=== PATIENT | male | born 1960 | race Caucasian/White ===

== ENCOUNTER 2016-12-23 02:24 | Emergency (ER) | payer BC ==
[2016-12-23 02:59] VITALS: BP 142/86; PULSE 78; RESP 16; TEMP 97
--- NOTE | 2016-12-23 03:20 | ED ---
General Adult HPI - General Chief complaint: Abdominal Pain Stated complaint: abd pain Time Seen by Provider: 12/23/16 02:58 Source: patient, RN notes reviewed, old records reviewed Mode of arrival: ambulatory Limitations: no limitations - History of Present Illness Initial comments: This is a 56-year-old male presenting to emergency Department with a sudden onset of right upper quadrant abdominal pain. 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 Patient reports that the pain woke him up out of his sleep. He contacted his friend. He states he did have some focal tenderness in the right upper quadrant however it slowly subsided. Patient ice emergency department states that his pain is a 0 out of 10. Patient denies any recent fever or chills. He reports the pain did occur after he ate a fatty meal including pizza and cheese. Patient states that he's had an episode that happened like this before. He reports that he had a ventral hernia repair by Dr. Carito terry. States that he's had no other GI issues. Denies any diarrhea, hematochezia. He did have one episode of vomiting when the pain was severe. Patient states that he's feels relatively good at this time. - Related Data Home Medications Medication Instructions Recorded Confirmed Lisinopril-Hctz 20-25 mg 1 tab PO DAILY 03/13/16 03/23/16 [Zestoretic 20-25] Loratadine [Claritin] 10 mg PO DAILY PRN 03/13/16 03/23/16 Montelukast [Singulair] 10 mg PO DAILY 03/13/16 03/23/16 Venlafaxine HCl [Effexor] 75 mg PO DAILY 03/13/16 03/23/16 amLODIPine [Norvasc] 5 mg PO DAILY 03/13/16 03/23/16 Previous Rx's Medication Instructions Recorded HYDROcodone/APAP 5-325MG [[place] 1 - 2 tab PO Q6HR PRN #60 tab 03/23/16 5-325] Allergies Allergy/AdvReac Type Severity Reaction Status Date / Time No Known Allergies Allergy Verified 03/23/16 07:45 Review of Systems ROS Statement: Those systems with pertinent positive or pertinent negative responses have been documented in the HPI. ROS Other: All systems not noted in ROS Statement are negative. Past Medical History Past Medical History: GERD/Reflux, Hypertension History of Any Multi-Drug Resistant Organisms: None Reported Past Surgical History: Hernia Repair Additional Past Surgical History / Comment(s): RIGHT KNEE ARTHROSCOPIC, VARICOCELE SURGERY Past Anesthesia/Blood Transfusion Reactions: No Reported Reaction Past Psychological History: Depression Smoking Status: Never smoker Past Alcohol Use History: Occasional Past Drug Use History: None Reported - Past Family History Brother(s) Family Medical History: Cancer Additional Family Medical History / Comment(s): PROSTATE CANCER, SKIN CANCER Mother Family Medical History: Cancer Additional Family Medical History / Comment(s): COLON CANCER AND SKIN CANCER Father Family Medical History: Cancer Additional Family Medical History / Comment(s): SKIN CANCER General Exam - General Exam Comments Initial Comments: Is a pleasant 56-year-old male. Patient signed. Any acute distress. Limitations: no limitations General appearance: alert, in no apparent distress Head exam: Present: atraumatic, normocephalic, normal inspection Eye exam: Present: normal appearance, PERRL, EOMI. Absent: scleral icterus, conjunctival injection, periorbital swelling ENT exam: Present: normal exam, mucous membranes moist Neck exam: Present: normal inspection. Absent: tenderness, meningismus, lymphadenopathy Respiratory exam: Present: normal lung sounds bilaterally. Absent: respiratory distress, wheezes, rales, rhonchi, stridor Cardiovascular Exam: Present: regular rate, normal rhythm, normal heart sounds. Absent: systolic murmur, diastolic murmur, rubs, gallop, clicks GI/Abdominal exam: Present: soft, normal bowel sounds. Absent: distended, tenderness, guarding, rebound, rigid Extremities exam: Present: normal inspection, full ROM, normal capillary refill. Absent: tenderness, pedal edema, joint swelling, calf tenderness Back exam: Present: normal inspection Neurological exam: Present: alert, oriented X3, CN II-XII intact Psychiatric exam: Present: normal affect, normal mood Skin exam: Present: warm, dry, intact, normal color. Absent: rash Course Vital Signs 12/23/16 12/23/16 02:33 04:10 Temperature 97 F L 97 F L Pulse Rate 78 78 Respiratory 16 16 Rate Blood Pressure 142/86 142/86 O2 Sat by Pulse 98 98 Oximetry Medical Decision Making - Medical Decision Making 56-year-old male with intermittent and right upper quadrant abdominal pain. Patient has no abdominal tenderness at this time. Patient states that he has no pain at this time. He is questioning if he needs to stay for the labs and treatment. I discussed with the patient that we can check for any acute lab work. He does not want us to call an ultrasound. Patient's lab work is needed for any acute process. Discussed that we can write for an outpatient ultrasound. Patient agrees history plan will comply. Return Parameters were discussed. - Lab Data Result diagrams: 12/23/16 03:35 12/23/16 03:35 Lab Results 12/23/16 12/23/16 Range/Units 03:35 03:35 WBC 7.3 (3.8-10.6) k/uL RBC 4.20 L (4.30-5.90) m/uL Hgb 13.2 (13.0-17.5) gm/dL Hct 36.6 L (39.0-53.0) % MCV 87.2 (80.0-100.0) fL MCH 31.3 (25.0-35.0) pg MCHC 35.9 (31.0-37.0) g/dL RDW 12.6 (11.5-15.5) % Plt Count 202 (150-450) k/uL Neutrophils % 58 % Lymphocytes % 24 % Monocytes % 7 % Eosinophils % 9 % Basophils % 1 % Neutrophils # 4.2 (1.3-7.7) k/uL Lymphocytes # 1.8 (1.0-4.8) k/uL Monocytes # 0.5 (0-1.0) k/uL Eosinophils # 0.7 (0-0.7) k/uL Basophils # 0.1 (0-0.2) k/uL Sodium 141 (137-145) mmol/L Potassium 3.5 (3.5-5.1) mmol/L Chloride 106 (98-107) mmol/L Carbon Dioxide 25 (22-30) mmol/L Anion Gap 10 mmol/L BUN 24 H (9-20) mg/dL Creatinine 0.90 (0.66-1.25) mg/dL Est GFR (MDRD) Af Amer >60 (>60 ml/min/1.73 sqM) Est GFR (MDRD) Non-Af >60 (>60 ml/min/1.73 sqM) Glucose 114 H (74-99) mg/dL Calcium 8.9 (8.4-10.2) mg/dL Total Bilirubin 0.3 (0.2-1.3) mg/dL AST 25 (17-59) U/L ALT 55 (21-72) U/L Alkaline Phosphatase 84 (38-126) U/L Total Protein 6.5 (6.3-8.2) g/dL Albumin 3.9 (3.5-5.0) g/dL Amylase 34 (30-110) U/L Lipase 165 (23-300) U/L Disposition Clinical Impression: Intermittent right upper quadrant abdominal pain Disposition: HOME SELF-CARE Condition: Good Instructions: Abdominal Pain (ED), Biliary Colic (ED) Additional Instructions: Patient should ultrasound within the next 1-2 days. Start a nonfatty food diet. Return to the emergency department if any alarming signs or symptoms occur including severe pain again or fever or chills. Referrals: Priyank Hyde MD [Primary Care Provider] - 1-2 days Time of Disposition: 04:04
[2016-12-23 03:49] LABS: Basophils # (A) 0.1 k/uL (0-0.2); Basophils % (A) 1 %; CH 32.3; CHCM 37.2; Eosinophils # (A) 0.7 k/uL (0-0.7); Eosinophils % (A) 9 %; HCT 36.6 % (39.0-53.0); HDW 2.85; HGB 13.2 gm/dL (13.0-17.5); Luc % (Auto) 1; Lymphocytes # (A) 1.8 k/uL (1.0-4.8); Lymphocytes % (A) 24 %; MCH 31.3 pg (25.0-35.0); MCHC 35.9 g/dL (31.0-37.0); MCV 87.2 fL (80.0-100.0); Mean Platelet Volume 6.5; Monocytes # (A) 0.5 k/uL (0-1.0); Monocytes % (A) 7 %; Neutrophils # (A) 4.2 k/uL (1.3-7.7); Neutrophils % (A) 58 %; RDW 12.6 % (11.5-15.5); WBC 7.3 k/uL (3.8-10.6); WBC (Perox) 7.39
[2016-12-23 03:57] LABS: ALT 55 U/L (21-72); AST 25 U/L (17-59); Alkaline Phosphatase 84 U/L (38-126); Amylase 34 U/L (30-110); Anion Gap 10 mmol/L; Blood Urea Nitrogen 24 mg/dL (9-20); Calcium 8.9 mg/dL (8.4-10.2); Carbon Dioxide 25 mmol/L (22-30); Chloride 106 mmol/L (98-107); Glucose 114 mg/dL (74-99); Non-African American GFR(MDRD) >60 (>60 ml/min/1.73 sqM); Potassium 3.5 mmol/L (3.5-5.1); Sodium 141 mmol/L (137-145); Total Bilirubin 0.3 mg/dL (0.2-1.3); Total Protein 6.5 g/dL (6.3-8.2)
== END 2016-12-23 04:12 | disposition home or self-care (01) ==
LOC: EC 02:24
DX: R10.11 Right upper quadrant pain (principal); R11.10 Vomiting, unspecified; I10 Essential (primary) hypertension; F32.9 Major depressive disorder, single episode, unspecified; Z79.899 Other long term (current) drug therapy
CPT/HCPCS: 36415; 80053; 82150; 83690; 85025; 99284

== ENCOUNTER → 2016-12-31 | Outpatient (CLI) | payer BC ==
--- NOTE | 2016-12-31 15:14 | US ---
EXAMINATION TYPE: US abdomen limited DATE OF EXAM: 12/31/2016 2:44 PM COMPARISON: NONE CLINICAL HISTORY: R10.11 RUQ Abdominal Pain. Intermittent RUQ pain x several months; on meds for HTN, asthma and allergies. EXAM MEASUREMENTS: Liver Length: 15.9 cm Gallbladder Wall: 0.3 cm CBD: 0.4 cm Right Kidney: 12.1 x 6.9 x 5.0 cm Pancreas: wnl Liver: fatty Gallbladder: full of shadowing stones; thickened wall in LLD position Evidence for sonographic Looney's sign: no CBD: wnl Right Kidney: wnl Patient requested copy of results to his family physician Dr. Hyde. Much of the pancreas is obscured. The liver is normal in size without biliary dilatation. There are multiple gallstones within the gallbladder. The gallbladder wall measures 3 mm. The distal common hepatic duct measures 4 mm. The right kidney is normal. IMPRESSION: CHOLELITHIASIS.
== END | disposition home or self-care (01) ==
LOC: RADUSWWP 14:16
PROVIDERS: ATTEND Emergency Medicine
DX: K80.20 Calculus of gallbladder without cholecystitis without obstruction (principal)
CPT/HCPCS: 76705

== ENCOUNTER 2017-04-01 09:26 | Day surgery (SDC) | payer BC ==
[2017-03-28 14:46] VITALS: BMI 29.2
--- NOTE | 2017-04-01 07:57 | P.GSHP ---
History of Present Illness H&P Date: 04/01/17 CHIEF COMPLAINT: Cholecystitis HISTORY OF PRESENT ILLNESS: The patient is a 57-year-old male who presents with history of epigastric including right upper quadrant abdominal pain. He underwent diagnostic studies for the gallbladder. Separately his clinical picture was consistent with cholecystitis. Now he presents for surgical intervention. PAST MEDICAL HISTORY: Please see list PAST SURGICAL HISTORY: Please see list MEDICATIONS: Please see list ALLERGIES: Denies. SOCIAL HISTORY: No illicit drug use or recent tobacco use FAMILY HISTORY: Pertinent for gallbladder disease REVIEW OF ORGAN SYSTEMS: CONSTITUTIONAL: No reports of fevers or chills. HEENT: Denies any troubles with the vision or hearing. ENDOCRINE: No reports of hypothyroidism. No diabetes. RESPIRATORY: No recent pneumonias. CARDIOVASCULAR: Denies chest pain or palpitations GI: No blood in stools or constipation. MUSCULOSKELETAL: Has occasional joint pain including back pain. NEURO: No seizure disorders or headaches. No recent stroke. PSYCH: No depression or suicidal ideation. HEMATOLOGIC: No personal or family history of DVTs or pulmonary emboli. PHYSICAL EXAM: VITAL SIGNS: Afebrile vital signs stable GENERAL: Well-developed pleasant male in no acute distress. HEENT: No scleral icterus. Extraocular movements grossly intact. Moist buccal mucosa. NECK: Supple without lymphadenopathy. CHEST: Unlabored respirations. Equal bilateral excursions. CARDIOVASCULAR: Regular rate regular rhythm rhythm. Distal 2+ pulses. ABDOMEN: Soft, nondistended. Tender along the epigastrium and right upper quadrant. MUSCULOSKELETAL: No clubbing, cyanosis, or edema. NEURO :Moves all extremities 4+/5. PSYCH: Alert and oriented to person, place and time. ASSESSMENT: 1. Epigastric and right upper quadrant abdominal pain 2. Chronic cholecystitis PLAN: 1. Will need a laparoscopic cholecystectomy possible open. Benefits and risks were described. 2. Heparin for DVT prophylaxis 5000 units. 3. Antibiotic prophylaxis. 4. Will need CBC and comprehensive metabolic panel on day of this procedure. Past Medical History Past Medical History: GERD/Reflux, Hypertension Additional Past Medical History / Comment(s): SEASONAL ALLERGIES History of Any Multi-Drug Resistant Organisms: None Reported Past Surgical History: Hernia Repair Additional Past Surgical History / Comment(s): RIGHT KNEE ARTHROSCOPIC, VARICOCELE SURGERY Past Anesthesia/Blood Transfusion Reactions: No Reported Reaction Smoking Status: Never smoker - Past Family History Brother(s) Family Medical History: Cancer Additional Family Medical History / Comment(s): PROSTATE CANCER, SKIN CANCER Mother Family Medical History: Cancer Additional Family Medical History / Comment(s): COLON CANCER AND SKIN CANCER Father Family Medical History: Cancer Additional Family Medical History / Comment(s): SKIN CANCER Medications and Allergies Home Medications Medication Instructions Recorded Confirmed Type Lisinopril-Hctz 20-25 mg 1 tab PO DAILY 03/13/16 03/28/17 History [Zestoretic 20-25] Loratadine [Claritin] 10 mg PO DAILY PRN 03/13/16 03/28/17 History Montelukast [Singulair] 10 mg PO DAILY 03/13/16 03/28/17 History amLODIPine [Norvasc] 5 mg PO DAILY 03/13/16 03/28/17 History Albuterol Sulfate [Proair Hfa] 2 puff INHALATION Q4H PRN 03/28/17 03/28/17 History Allergies Allergy/AdvReac Type Severity Reaction Status Date / Time No Known Allergies Allergy Verified 03/28/17 14:42
[~2017-04-01 09:26] MED LIST: ACETAMINOPHEN IV (For NPO) 1,000 MG in EMPTY BAG 1 BAG IVPB ONE; DEXAMETHASONE SOD PHOSPHATE 10 MG/ML 1 ML VIAL IV ONE; HEPARIN SODIUM,PORCINE 5,000 UNIT/ML 1 ML VIAL SQ ONE; HYDROmorphone 1 MG/ML 1 ML SYRINGE IVP PRN; LACTATED RINGERS 1,000 ML IV SCH; LIDOCAINE 1% 20 ML VIAL (10MG/ML) FOR IV START INTRADERMA PRN; ONDANSETRON 4 MG/2 ML VIAL IVP ONE; SCOPOLAMINE 1.5MG/72HR PATCH TRANSDERM ONE; ceFAZolin 2 GM in SODIUM CHLORIDE 0.9% 100 ML IVPB ONE
[2017-04-01] MEDS ORDERED: LACTATED RINGERS 1,000 ML IV ONE (09:39)
[2017-04-01 10:01] LABS: Basophils # (A) 0.1 k/uL (0-0.2); Basophils % (A) 1 %; CH 32.9; Eosinophils # (A) 0.6 k/uL (0-0.7); Eosinophils % (A) 7 %; HCT 37.6 % (39.0-53.0); HDW 2.71; HGB 13.2 gm/dL (13.0-17.5); Luc # (Auto) 0.14; Luc % (Auto) 2; Lymphocytes # (A) 2.7 k/uL (1.0-4.8); Lymphocytes % (A) 33 %; MCH 31.4 pg (25.0-35.0); MCHC 35.2 g/dL (31.0-37.0); MCV 89.3 fL (80.0-100.0); Mean Platelet Volume 7.1; Monocytes # (A) 0.4 k/uL (0-1.0); Monocytes % (A) 5 %; Neutrophils # (A) 4.3 k/uL (1.3-7.7); Neutrophils % (A) 52 %; RBC 4.21 m/uL (4.30-5.90); RDW 13.2 % (11.5-15.5); WBC 8.2 k/uL (3.8-10.6); WBC (Perox) 8.03
[2017-04-01 10:10] LABS: ALT 74 U/L (21-72); AST 34 U/L (17-59); Alkaline Phosphatase 54 U/L (38-126); Anion Gap 11 mmol/L; Blood Urea Nitrogen 22 mg/dL (9-20); Calcium 9.3 mg/dL (8.4-10.2); Carbon Dioxide 27 mmol/L (22-30); Chloride 102 mmol/L (98-107); Glucose 86 mg/dL (74-99); Non-African American GFR(MDRD) >60 (>60 ml/min/1.73 sqM); Potassium 3.7 mmol/L (3.5-5.1); Sodium 140 mmol/L (137-145); Total Bilirubin 0.6 mg/dL (0.2-1.3); Total Protein 7.3 g/dL (6.3-8.2)
[2017-04-01] MEDS ORDERED: ROCURONIUM BROMIDE 10 MG/ML 10 ML VIAL IV ONE (11:35)
[2017-04-01] MEDS ORDERED: NEOSTIGMINE 1 MG/ML 10 ML VIAL ONE (11:35)
[2017-04-01] MEDS ORDERED: MIDAZOLAM 2 MG/2 ML VIAL ONE (11:35)
[2017-04-01] MEDS ORDERED: LIDOCAINE 1% INJ 10MG/ML (20 ML MDV) ONE (11:35)
[2017-04-01] MEDS ORDERED: PROPOFOL 10 MG/ML 20 ML VIAL IV ONE (11:35)
[2017-04-01] MEDS ORDERED: GLYCOPYRROLATE 0.2 MG/ML 2 ML VIAL ONE (11:35)
[2017-04-01] MEDS ORDERED: SUCCINYLCHOLINE CHLORIDE VIAL 200 MG/10 ML VIAL IV ONE (11:35)
[2017-04-01] MEDS ORDERED: ACETAMINOPHEN IV (For NPO) 1,000 MG/100 ML VIAL ONE (11:35)
[2017-04-01] MEDS ORDERED: fentaNYL (PF) 50 MCG/ML 2 ML AMP ONE (11:35)
[2017-04-01] MEDS ORDERED: BUPIVACAIN-EPI 0.5%-1:200,000 30 ML VIAL SQ ONE (12:00)
[2017-04-01] MEDS ORDERED: NALOXONE 0.4 MG/ML 1 ML VIAL IV PRN (12:35)
[2017-04-01] MEDS ORDERED: HYDROcodone/APAP 5-325MG 1 EACH TAB PO PRN (12:35)
--- NOTE | 2017-04-01 12:42 | P.PCN ---
Date of Procedure: 04/01/17 Preoperative Diagnosis: Cholecystitis Postoperative Diagnosis: Same, gallstones Procedure(s) Performed: Lap samy Implants: Anesthesia: GETA, local Surgeon: Gisela Lugo Estimated Blood Loss (ml): 5 Pathology: other (Gallbladder) Condition: stable Disposition: floor Indications for Procedure: Operative Findings: Severe adhesions epigastrium from previous mesh repair, thickened gallbladder wall consistent with chronic cholecystitis with gallstones. Description of Procedure:
[2017-04-01] MEDS ORDERED: KETOROLAC 30 MG/ML 1 ML VIAL IVP SCH (12:45)
[2017-04-01 12:58] VITALS: RESP 16; TEMP 98.6
[2017-04-01] MEDS ORDERED: HYDROmorphone 1 MG/ML 1 ML SYRINGE IVP ONE ×2 (13:20→13:39)
[2017-04-01 14:19] VITALS: BP 126/81; PULSE 70
[2017-04-01] MEDS ORDERED: HYDROcodone/APAP 5-325MG 1 EACH TAB PO ONE (14:38)
--- NOTE | 2017-04-04 11:19 | CDI ---
Dear Dr. Jenifer Brice, In order to code and bill for the procedures performed, we need a completed OP note. Please provide a detailed Description of Procedure as an addendum. Just the procedure title is not sufficient. If you do not understand what is needed from you, please contact my manager interventional, Anna Marie Levine . Thank you. Patricia FERGUSON WILL AMEND THANK YOU IGOR
--- NOTE | 2017-04-28 17:34 | P.OP ---
Date of Procedure: 04/01/17 Description of Procedure: SURGEON: EDDI STEVEN MD GLOBAL PROCESS OWNER: None. PREOPERATIVE DIAGNOSES: 1. Chronic Cholecystitis. 2. Symptomatic gallstones. 3. Gastroesophageal reflux disease. 4. Essential hypertension. 5. History of asthma. POSTOPERATIVE DIAGNOSES: 1. Chronic Cholecystitis. 2. Symptomatic gallstones. 3. Gastroesophageal reflux disease. 4. Essential hypertension. 5. History of asthma. 6. Peritoneal adhesions, right upper quadrant. OPERATION: Laparoscopic cholecystectomy ANESTHESIA: General with local anesthetic. ESTIMATED BLOOD LOSS: 5 mL. SPECIMENS REMOVED: Gallbladder. COMPLICATIONS: None. INDICATIONS: The patient is a 57-year-old male who presents with chronic cholecystitis. He additional diagnostic imaging including ultrasound confirming gallstones. Surgical intervention with a laparoscopic cholecystectomy was described at length including injury to the biliary tree, bleeding, infection, need for further surgery. Informed consent was obtained. DESCRIPTION OF THE PROCEDURE: The patient was brought to the operating room, laid in supine position. After general induction, the abdomen was prepped and draped in a standard sterile fashion. Prior to incision, a timeout protocol was confirmed with surgical team regarding patient's name, procedure to be performed including preoperative medications for which he had received heparin 5000 units subcutaneously as well as bilateral SCDs for DVT prophylaxis. A transverse 10 mm incision left upper quadrant incision was made after localizing the skin. A 0 degree 11-mm laparoscopic trocar entry was performed and entered into the peritoneal cavity. Diagnostic laparoscopy confirmed no injury to bowel, viscera or mesentery. Moderate omental adhesions involving the greater omentum to the anterior abdominal wall was identified along the epigastrium from his previous ventral hernia repair. No current recurrence of his ventral hernia was identified. Adhesions along the epigastrium was identified and addressed using Sonicision for over 20 minutes. Next, two 5 mm trocars were placed along the right costal margin followed another 5 mm port along the epigastrium placed under direct localization. The patient was placed in steep reverse Trendelenburg position with the right side up. With a moderate adhesions along the gallbladder, careful dissection using blunt graspers were used. Sonicision was used to divide her adhesions. Over 10 minutes of careful lysis of adhesions was performed without enterotomies. The gallbladder fundus was retracted to the anterior dome wall. Initial attention was brought to the infundibulum which was gently retracted in the inferior lateral approach. Using a Kittner, the cystic duct including the cystic artery was carefully skeletonized. A large clip sales development executive was selected for the rest of the case. Two clips were placed proximally, and 2 clips were placed distally along the cystic duct and then divided using Sonicision. Again care was taken to avoid any injury to the biliary tree as the common bile duct was visualized during this portion of dissection. Next, the cystic artery was clipped twice proximally, once distally and then cauterized and divided using Sonicision. Electro-Bovie cautery was used to remove the gallbladder from the hepatic fossa without decompression of the gallbladder. Hemostasis was checked and found to be adequate. The gallbladder was removed from the abdominal cavity using an Endo Catch bag and passed off for further pathological analysis. All instruments and pneumoperitoneum were removed from the abdominal cavity. The fascial defect was less than 8 mm for the 11-mm port site. The rest of incisions were reapproximated using 4-0 Monocryl in an interrupted subcuticular fashion. Local anesthetic was infiltrated to all wounds for postop analgesia. Dermabond was applied to the skin. At the end of the procedure, needle, sponge, and instrument count was verified correct by surgical scrub tech. The patient had tolerated the procedure well and was taken to postanesthesia care unit in stable condition. Intraoperative films were discussed and reviewed with the patient's family who were pleased with the level of care. FINDINGS: 1. Multiple gallstones. 2. Severe chronic cholecystitis with right upper quadrant adhesions. 3. Severe adhesions epigastrium from previous mesh repair 4. Thickened gallbladder wall consistent with chronic cholecystitis with gallstones.
== END 2017-04-01 15:02 | disposition home or self-care (01) ==
LOC: OR 09:26
PROVIDERS: ATTEND Surgery Plastic and Reconstructive Surgery
DX: K80.10 Calculus of gallbladder with chronic cholecystitis without obstruction (principal); K66.0 Peritoneal adhesions (postprocedural) (postinfection); J45.909 Unspecified asthma, uncomplicated; K21.9 Gastro-esophageal reflux disease without esophagitis; I10 Essential (primary) hypertension; Z79.899 Other long term (current) drug therapy
CPT/HCPCS: 88304; 80053; 85025; 47562; 49329; J2250; J0330; J1644; J1100; J2710; J0690; J2405; J2001; J3010; J1170; J0131; J2704

== ENCOUNTER → 2022-02-08 | Outpatient (CLI) | payer BC ==
--- NOTE | 2022-02-08 11:46 | P.SLEEP ---
History of Present Illness DATE: 02/08/2022 CONSULTATION/NEW PATIENT EVALUATION HISTORY OF PRESENT ILLNESS/SLEEP-WAKE EVALUATION: 62year old gentleman had been evaluated in the sleep center for obstructive sleep apnea hypopnea syndrome. Patient has history of obstructive sleep apnea hypopnea syndrome for about 10 years. For all this years patient continue to use his CPAP equipment during the night. His machine is old recently started develop some problems. For many years patient getting his CPAP supplies by himself without any prescriptions or insurance payments. I checked CPAP unit CPAP pressure is 7 cm of water usage is 26 out of 30 nights for more than 4 hours, Lyrica 0% the pressure is 7 cm of water. Patient feels that depression is not enough for him at the present time. Machine is old. SLEEP SCHEDULE: Usually sleep schedule on weekdays from 9 AM to 5 PM, during days off from 11 PM to 5- 8 AM. 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 FALLING ASLEEP: Sometimes patient has problems with falling asleep DURING SLEEP: Usually patient wakes up from sleep about 2 times per night with one episode of nocturia. No history of hypnogogical hallucinations, sleep paralysis, or cataplexy. DURING THE DAY/WAKE STATE: After awakenings from sleep patient feels sleepiness. Hobbs sleepiness scale is 9. Patient takes up to 3.naps day. PAST MEDICAL HISTORY: Hypertension, asthma, acid reflux. PAST SURGICAL HISTORY: Cholecystectomy, right knee arthroscopic surgery, a ventral hernia repair. MEDICATIONS: Norvasc 5 mg once a day, lisinoprilhydrochlorothiazide 1012 0.5 mg once a day, Singulair 10 mg once a day, pro-air 40 g on when necessary basis, Pepcid. SOCIAL HISTORY: Negative for smoking, alcohol consumption occasional. FAMILY HISTORY: Cancer REVIEW OF SYSTEMS: Awakenings from sleep while on treatment with CPAP. No fevers. No double vision. No recent chest pain. No shortness of breath. No abdominal pain. No bleeding episodes. No blood in urine. No seizure episodes. PHYSICAL EXAMINATION: GENERAL: A pleasant patient without any distress. VITAL SIGNS: BP 127/88 , HR 71 , RR 16 , weight 221.8 pounds, height 5 foot 11 inches, body mass index 31.1 . HEENT: PERRLA, EOMI. Evaluation of oropharynx showed tongue protrudes midline, low position of soft palate Mallampati 4. NECK: Supple. No JVD. Thyroid is not palpable. 18 inches in circumference. LUNGS: Clear to percussion and to auscultation. Good air exchange. No wheezing or rhonchi. HEART: S1, S2 regular. No murmurs, gallops or rubs. ABDOMEN: Soft and nontender. Bowel sounds are present. No organomegaly appreciated. EXTREMITIES: No clubbing or cyanosis. BOOKKEEPING MACHINE MECHANIC: Awake, alert, and oriented x3. Cranial nerves 2 to 7 intact. There is no f asciculation or atrophy noted. No focal deficits observed. ASSESSMENT: 1. Obstructive sleep apnea hypopnea syndrome for 10 years. Extremely small oropharyngeal air space Mallampati 4, white neck 18 inches in circumference. Obstructive sleep apnea hypopnea syndrome. 2. Mild obesity body mass index 31.1. 3 hypertension. 4. Asthma. 5 acid reflux. 6. Status post cholecystectomy. 7. Status post varicocele surgical treatment. 8. Status post right knee arthroscopic surgery. 9. Status post ventral hernia repair. 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 PLAN: 1. Home sleep apnea test for evaluation of patient's breathing during sleep at the present time. 2. Patient will get new Pap equipment after home sleep apnea test. 3. Preferable position during sleep on the side. 4. No driving if patient feels any sleepiness. Patient is aware of civil and criminal liability for unsafe driving. 5. Sleep hygiene with regular sleep time for at least 7.5-8 hours. 6. Watching weight. 7. I increased pressure in the patient CPAP unit from 7 to 9 cm of water. Patient will continue to use CPAP equipment every night. Sincerely, Golden Scott MD, PhD, FAASM. Diplomat of [place] Board of Sleep Medicine, Sleep Medicine Board by [place] [employer] of [employer] Specialities [place] [employer] of [employer] Medicine Direct [employer] Operator of [facility] [place] Past Medical History Past Medical History: GERD/Reflux, Hypertension Additional Past Medical History / Comment(s): SEASONAL ALLERGIES History of Any Multi-Drug Resistant Organisms: None Reported Past Surgical History: Hernia Repair Additional Past Surgical History / Comment(s): RIGHT KNEE ARTHROSCOPIC, VARICOCELE SURGERY Past Anesthesia/Blood Transfusion Reactions: No Reported Reaction Past Psychological History: No Psychological Hx Reported Past Alcohol Use History: Occasional Past Drug Use History: None Reported - Past Family History Brother(s) Family Medical History: Cancer Additional Family Medical History / Comment(s): PROSTATE CANCER, SKIN CANCER Mother Family Medical History: Cancer Additional Family Medical History / Comment(s): COLON CANCER AND SKIN CANCER Father Family Medical History: Cancer Additional Family Medical History / Comment(s): SKIN CANCER Medications and Allergies Home Medications Medication Instructions Recorded Confirmed Type Lisinopril-Hctz 20-25 mg 1 tab PO DAILY 03/13/16 03/28/17 History [Zestoretic 20-25] Loratadine [Claritin] 10 mg PO DAILY PRN 03/13/16 03/28/17 History Montelukast [Singulair] 10 mg PO DAILY 03/13/16 03/28/17 History amLODIPine [Norvasc] 5 mg PO DAILY 03/13/16 03/28/17 History HYDROcodone/APAP 5-325MG [[place] 1 - 2 tab PO Q6HR PRN #60 tab 03/23/16 03/28/17 Rx 5-325] Albuterol Sulfate [Proair Hfa] 2 puff INHALATION Q4H PRN 03/28/17 03/28/17 History Hydrocodone/Acetaminophen [[place] 1 - 2 each PO Q6HR PRN #20 tab 04/01/17 Rx 5-325] Allergies Allergy/AdvReac Type Severity Reaction Status Date / Time No Known Allergies Allergy Verified 03/28/17 14:42 Sleep Note - Sleep Note Sleep Note: Temperature: Pulse Rate: Respiratory Rate: Blood Pressure: SpO2: Height: Weight: BMI: Neck Circumference:
== END ==
LOC: SLEEP 10:31
PROVIDERS: ATTEND Internal Medicine
DX: G47.33 Obstructive sleep apnea (adult) (pediatric) (principal); E66.9 Obesity, unspecified; Z68.31 Body mass index [BMI] 31.0-31.9, adult; I10 Essential (primary) hypertension; J45.909 Unspecified asthma, uncomplicated; K21.9 Gastro-esophageal reflux disease without esophagitis; Z90.49 Acquired absence of other specified parts of digestive tract; Z98.890 Other specified postprocedural states
CPT/HCPCS: 99211

== ENCOUNTER → 2022-07-11 | Outpatient (CLI) | payer BC ==
--- NOTE | 2022-07-11 11:38 | P.PN ---
Subjective DATE: 07/11/2022 FOLLOW UP VISIT. Patient with obstructive sleep apnea hypopnea syndrome return to sleep center for follow-up visit. Recently patient had sleep study which documented obstructive sleep apnea hypopnea syndrome. Patient was initiated on PAP therapy with new CPAP unit and today is first visit after treatment was started with new CPAP equipment. Patient was able to use PAP equipment every night for the whole night. The patient does not have significant problems with the mask, PAP pressure and humidification. [place] sleepiness scale is 7 which is normal. I checked information from PAP unit. PAP unit pressure 5-11, average 8.0 cm H2O. Usage is 100% and 90 % for more then 4 hours, average 6.8 hours per night. Leak is 10.7 l/m, which is in acceptable range. Apnea Hypopnea Index is 0.4, which is normal. MEDICATIONS:1. Norvasc 5 mg once a day 2. Lisinopril/hydrochlorothiazide 10/12.5 mg once a day 3. Singulair 10 mg once a day 4. Pro Air 40 g as necessary 5. Pepcid During physical exam: GENERAL: A pleasant patient without any distress. VITAL SIGNS: BP 131/87, HR 81, RR 16 , weight 227.2, temperature 97.4, oxygen saturation at room air 96% . HEENT: PERRLA, EOMI.low position of soft palate, Mallapati 4 . NECK: Supple. No JVD. LUNGS: Clear to percussion and to auscultation. Good air exchange. No wheezing or rhonchi. HEART: S1, S2 regular. ABDOMEN: Soft and nontender.[] EXTREMITIES: No clubbing or cyanosis. 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 No focal deficit. Impressions: 1. Obstructive sleep apnea-hypopnea syndrome in severe range. Apnea hypopnea index 41.2 by results of home sleep apnea test. Patient demonstrated great compliance with treatment, benefiting from treatment, absolutely normal respiration on CPAP.. 2. Hypertension. 3. Asthma. 4. Acid reflux. 5. Status post cholecystectomy. 6. Status post right knee arthroscopic surgery. 7. Status post varicocele surgical treatment. 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 9. Status post hernia repair. Plan: 1. Continue using PAP equipment every night for the whole night. 2. To change air filter at least 1-2 times per month. 3. PAP unit should stay lower then position of the head. 4. Advised patient to remove all remaining water from humidifier canister daily and make it dry after each usage. Refill canister with fresh distilled water before each usage. 5. Sleep hygiene with regular time in bed for at least 8 hours. 6. Precautions related to driving. No driving if feel any sleepiness. 7. I will maintain prescription for PAP supplies including mask, tube, filters. 8. Follow up visit in 6 months or earlier if patient has any problems. 9. Watching weight. Thank you very much for allowing me to participate in the management of your patient. Golden Scott MD, PhD, FAASM. Diplomat of [place] [employer], Sleep Medicine Board by [place] [employer] Sett[employer] [facility] [place]
== END ==
LOC: SLEEP 10:33
PROVIDERS: ATTEND Internal Medicine
DX: G47.33 Obstructive sleep apnea (adult) (pediatric) (principal); I10 Essential (primary) hypertension; K21.9 Gastro-esophageal reflux disease without esophagitis; J45.909 Unspecified asthma, uncomplicated; Z98.890 Other specified postprocedural states; Z99.89 Dependence on other enabling machines and devices

== ENCOUNTER → 2022-09-13 | Outpatient (CLI) | payer OTHER ==
--- NOTE | 2022-09-13 13:07 | XR ---
EXAMINATION TYPE: XR shoulder complete RT DATE OF EXAM: 09/13/2022 COMPARISON: NONE HISTORY: pain TECHNIQUE: Three views are submitted. FINDINGS: The osseous structures are intact. There is no acute fracture or dislocation. Mild hypertrophic AC j oint arthropathy. IMPRESSION: 1. No acute process.
== END | disposition home or self-care (01) ==
LOC: RADXRMAIN 12:30
PROVIDERS: ATTEND Emergency Medicine
DX: S46.011A Strain of muscle(s) and tendon(s) of the rotator cuff of right shoulder, initial encounter (principal)

== ENCOUNTER → 2022-12-11 | Outpatient (CLI) | payer BC ==
--- NOTE | 2022-12-11 22:23 | CT ---
EXAMINATION TYPE: CT neck chest w con DATE OF EXAM: 12/11/2022 COMPARISON: Carotid ultrasound October 01, 2022 HISTORY: localized swelling/mass. pt says it is not palpable. Abnormal carotid ultrasound. CT DLP: 1978 mGycm. Automated Exposure Control for Dose Reduction was Utilized. TECHNIQUE: CT scan of the neck and thorax are performed following with IV Contrast, patient injected with 100ml mL of Isovue 300. FINDINGS: NECK: Airway: No gross abnormality seen. Parotid/submandibular glands: No gross abnormality seen. Carotid/Vascular Structures: No gross abnormalities seen. Osseous Structures: Slight grade 1 retrolisthesis C5 on C6 and C6 on C7 with moderate disc space narr owing at these levels. Other: Scattered prominent but subcentimeter lymph nodes throughout the neck bilaterally. No definiti ve greater than 1 cm neck adenopathy. Corresponding to ultrasound there is a 10 x 8 mm prominent but subcentimeter lymph node in region of right carotid bulb axial image 48 noted. Some nasal septal moises ation is seen. THORAX: LUNGS: Focal mild linear scarring or atelectasis in the right middle lobe. Mild linear scarring or at electasis in the left lung base. No suspicious focal consolidation. There is no pleural effusion or p neumothorax seen. The tracheobronchial tree is patent. MEDIASTINUM: There are no greater than 1 cm hilar or mediastinal lymph nodes. No cardiomegaly or pe ricardial effusion is seen. OTHER: Occasional calcifications scattered throughout the spleen. Visualized liver is heterogeneously hypodense suggesting diffuse fatty infiltration. IMPRESSION: No abnormal neck or thoracic adenopathy or concerning masses clearly seen.
== END | disposition home or self-care (01) ==
LOC: RADCTMAIN 16:11
PROVIDERS: ATTEND Internal Medicine
DX: R22.1 Localized swelling, mass and lump, neck (principal)
CPT/HCPCS: 70491; 71260; Q9967

== ENCOUNTER 2023-02-05 11:39 | Day surgery (SDC) | payer BC, OTHER ==
[2023-02-04 12:58] VITALS: BMI 32.1
[~2023-02-05 11:39] MED LIST changes: -ACETAMINOPHEN IV (For NPO) 1,000 MG in EMPTY BAG 1 BAG IVPB ONE; -DEXAMETHASONE SOD PHOSPHATE 10 MG/ML 1 ML VIAL IV ONE; -HEPARIN SODIUM,PORCINE 5,000 UNIT/ML 1 ML VIAL SQ ONE; -HYDROmorphone 1 MG/ML 1 ML SYRINGE IVP PRN; +LIDOCAINE 1% (10MG/ML) FOR IV START INTRADERMA PRN; -LIDOCAINE 1% 20 ML VIAL (10MG/ML) FOR IV START INTRADERMA PRN; -ONDANSETRON 4 MG/2 ML VIAL IVP ONE; -SCOPOLAMINE 1.5MG/72HR PATCH TRANSDERM ONE; -ceFAZolin 2 GM in SODIUM CHLORIDE 0.9% 100 ML IVPB ONE
[2023-02-05 12:47] VITALS: TEMP 98
[2023-02-05] MEDS ORDERED: PROPOFOL 10 MG/ML 20 ML VIAL IV ONE (13:15)
--- NOTE | 2023-02-05 13:35 | P.PCN ---
Date of Procedure: 02/05/23 Procedure(s) Performed: BRIEF HISTORY: Patient is a 63-year-old pleasant male scheduled for an elective colonoscopy as a part of screening for colon cancer. His mother was diagnosed with colon cancer at age 80. PROCEDURE PERFORMED: Colonoscopy with snare polypectomy and Endo Clip placement. PREOPERATIVE DIAGNOSIS: Screening for colon cancer and family history of colon cancer IV sedation per Anesthesia. PROCEDURE: After informed consent was obtained, the patient, was brought into the endoscopy unit. IV sedation was administered by Anesthesia under continuous monitoring. Digital rectal examination was normal. Initially the Olympus CF-160 flexible video colonoscope was then inserted in the rectum, gradually advanced into the cecum without any difficulty. Careful examination was performed as the scope was gradually being withdrawn. Ileocecal valve and the appendiceal orifice were visualized and appeared normal. Prep was excellent. Mucosa of the cecum, appeared normal. In the ascending colon just proximal to the ileocecal valve there was a 2 cm broad-based polyp that was removed by piecemeal snare polypectomy and following this Endo Clip was placed to prevent post-polypectomy bleed. Rest of the ascending colon, transverse colon, descending colon, sigmoid colon, and rectum appeared normal. Retroflexion was performed in the rectum and no lesions were seen. The patient tolerated the procedure well. IMPRESSION: 2 cm broad-based ascending colon polyp status post snare polypectomy followed by Endo Clip placement Rest of the colon appeared normal RECOMMENDATIONS: Findings of this examination were discussed with the patient as his family. He was advised to follow with the biopsy results. If the biopsy results adenoma he can have a repeat colonoscopy in 3 years..
[2023-02-05 13:45] VITALS: RESP 16
[2023-02-05 13:56] VITALS: BP 129/86; PULSE 72
== END 2023-02-05 14:09 | disposition home or self-care (01) ==
LOC: ORWHC2ENDO 11:39
PROVIDERS: ATTEND Internal Medicine Gastroenterology
DX: Z12.11 Encounter for screening for malignant neoplasm of colon (principal); D12.2 Benign neoplasm of ascending colon; K21.9 Gastro-esophageal reflux disease without esophagitis; I10 Essential (primary) hypertension; E78.5 Hyperlipidemia, unspecified; F17.200 Nicotine dependence, unspecified, uncomplicated; Z80.0 Family history of malignant neoplasm of digestive organs; Z79.899 Other long term (current) drug therapy
CPT/HCPCS: 45382; 88305; 45385; J2704

== ENCOUNTER → 2023-11-19 | Outpatient (CLI) | payer BC ==
--- NOTE | 2023-11-20 10:15 | CA ---
Transthoracic Echo Report Name: Tone Carter Age: 63 Gender: M : 1960 Exam Date: 11/19/2023 09:53 Exam Location: Center Echo Ht (in): 61 Wt (lb): 230 Ordering Physician: Kendal Saez MD Attending/Referring Phys: Stations Superintendent Procedure CPT: Indications: R60.0 LOCALIZED EDEMA Cardiac Hx: Technical Quality: Contrast 1: Total Dose (mL): Contrast 2: Total Dose (mL): MEASUREMENTS (Male / Female) Normal Values 2D ECHO LV Diastolic Diameter PLAX 5.3 cm 4.2 - 5.9 / 3.9 - 5.3 cm LV Systolic Diameter PLAX 3.6 cm IVS Diastolic Thickness 1.1 cm 0.6 - 1.0 / 0.6 - 0.9 cm LVPW Diastolic Thickness 1.0 cm 0.6 - 1.0 / 0.6 - 0.9 cm LV Relative Wall Thickness 0.4 LVOT Diameter 1.9 cm Aortic Root Diameter 3.7 cm LA Systolic Diameter LX 3.9 cm 3.0 - 4.0 / 2.7 - 3.8 cm LV Diastolic Volume MOD BP 169.8 cm??? 67 - 155 / 56 - 104 cm??? LV Systolic Volume MOD BP 98.7 cm??? 22 - 58 / 19 - 49 cm??? LV Ejection Fraction MOD BP 41.9 % >= 55 % LV Diastolic Volume MOD 4C 155.6 cm??? LV Systolic Volume MOD 4C 87.7 cm??? LV Ejection Fraction MOD 4C 43.7 % LV Diastolic Length 4C 9.0 cm LV Systolic Length 4C 8.2 cm LV Diastolic Volume MOD 2C 186.1 cm??? LV Systolic Volume MOD 2C 109.5 cm??? LV Ejection Fraction MOD 2C 41.2 % LV Diastolic Length 2C 9.0 cm LV Systolic Length 2C 8.4 cm DOPPLER AV Peak Velocity 132.7 cm/s AV Peak Gradient 7.0 mmHg AV Mean Velocity 98.9 cm/s AV Mean Gradient 4.1 mmHg AV Velocity Time Integral 23.7 cm LVOT Peak Velocity 101.7 cm/s LVOT Peak Gradient 4.1 mmHg LVOT Velocity Time Integral 22.0 cm LVOT Stroke Volume 65.8 cm??? LVOT Stroke Volume Index 32.8 ml/m??? AV Area Cont Eq vti 2.8 cm??? AV Area Cont Eq pk 2.3 cm??? Mitral E Point Velocity 89.1 cm/s Mitral A Point Velocity 80.6 cm/s Mitral E to A Ratio 1.1 MV Deceleration Time 161.6 ms MV E' Velocity 9.1 cm/s Mitral E to MV E' Ratio 9.8 PV Peak Velocity 84.0 cm/s PV Peak Gradient 2.8 mmHg FINDINGS Left Ventricle Left ventricular ejection fraction is estimated at 55-60 %.Normal left ventricular systolic function with no obvious regional wall motion abnormalities. Borderline left ventricular hypertrophy. Right Ventricle Normal right ventricular size and function. Right Atrium Normal right atrial size. Left Atrium Normal left atrial size. Mitral Valve Trace mitral regurgitation. Aortic Valve No aortic valve stenosis or regurgitation. Tricuspid Valve Trace tricuspid regurgitation. Pulmonic Valve No pulmonic regurgitation. Pericardium No pericardial effusion. Aorta Aortic dilatation measuring up to 4.0 cm. CONCLUSIONS Technically difficult and suboptimal study. Grossly the left ventricle size and systolic function is normal there is mild concentric LVH. No significant abnormality in the Doppler exam. Right-sided pressures are not well quantified. No pericardial effusion Previewed by: Dr. Vega Valladares MD (Electronically Signed) Final Date: 20 November 2023 10:15
== END | disposition home or self-care (01) ==
LOC: RADECHMAIN 10:48
PROVIDERS: ATTEND Internal Medicine
DX: R60.0 Localized edema (principal)
CPT/HCPCS: 93306

== ENCOUNTER → 2024-01-08 | Outpatient (CLI) | payer BC ==
--- NOTE | 2024-01-08 12:37 | P.PROGSL ---
Subjective DATE: 01/08/2024 FOLLOW UP VISIT. Patient with obstructive sleep apnea hypopnea syndrome return to sleep center for follow-up visit. Information from previous visit have been reviewed. Patient is using PAP equipment every night for the whole night, getting PAP supplies in time. The patient does not have significant problems with the mask, PAP unit and humidification. [place] sleepiness scale is 4, which is normal. I checked information from PAP unit. PAP unit pressure 5-11, average 8.9 cm H2O. Usage is 100% for more then 4 hours, average 7.5 hours per night. Leak is 19 l/m, which is in acceptable range. Apnea Hypopnea Index is 0.3, which is normal. MEDICATIONS: Please see below During physical exam: GENERAL: A pleasant patient without any distress. VITAL SIGNS: Please see below. HEENT: [place], EOMI.low position of soft palate, Mallapati 4 . NECK: Supple. No JVD. LUNGS: Clear to percussion and to auscultation. Good air exchange. No wheezing or rhonchi. HEART: S1, S2 regular. ABDOMEN: Soft and nontender.[] EXTREMITIES: No clubbing or cyanosis. 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 No focal deficit. Impressions: 1. Obstructive sleep apnea-hypopnea syndrome. Patient demonstrated great compliance with treatment, benefiting from treatment. 2. Hypertension. 3. Asthma. 4. Acid reflux. 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 6. Status post right knee arthroscopic surgery. 7. Mild obesity, patient lost 6 pounds comparing with previous visit. 8. Status post cholecystectomy. 9. Difficulties to breathe through the nose, possibly nasal septum deviation. Plan: 1. Continue using PAP equipment every night for the whole night. 2. To change air filter at least 1-2 times per month. 3. PAP unit should stay lower then position of the head. 4. Advised patient to remove all remaining water from humidifier canister daily and make it dry after each usage. Refill canister with fresh distilled water before each usage. 5. Sleep hygiene with regular time in bed for at least 8 hours. 6. Precautions related to driving. No driving if feel any sleepiness. 7. I will maintain prescription for PAP supplies including mask, tube, filters. 8. Follow up visit in 6 months or earlier if patient has any problems. 9. Watching weight. 10. Patient may consider evaluation by ear nose and throat physician for improving nasal breathing. Thank you very much for allowing me to participate in the management of your patient. Golden Scott MD, PhD, FAASM. Diplomat of [place] [employer], Sleep Medicine Board by [place] [employer] Gathering Machine Feeder [facility] [place] Objective - Vital Signs Vital Signs: Vital Signs Temp 98.0 F 01/08/24 12:18 Pulse 69 01/08/24 12:18 Resp 16 01/08/24 12:18 BP 146/94 01/08/24 12:18 Pulse Ox 94 L 01/08/24 12:18 FiO2 Intake & Output 01/07/24 01/08/24 01/08/24 18:59 06:59 18:59 Weight 106.197 kg Home Medications: Home Medications Medication Instructions Recorded Confirmed Type Montelukast [Singulair] 10 mg PO QAM 03/13/16 01/08/24 History amLODIPine [Norvasc] 5 mg PO QAM 03/13/16 01/08/24 History Albuterol Sulfate [Proair Hfa] 2 puff INHALATION Q4H PRN 03/28/17 01/08/24 H istory Ezetimibe [Zetia] 10 mg PO DAILY 02/04/23 01/08/24 History Famotidine [Pepcid] 20 mg PO DAILY 02/04/23 02/04/23 History Losartan/Hydrochlorothiazide 1 tab PO DAILY 02/04/23 01/08/24 History [Losartan-Hctz 100-25 mg Tab] Rosuvastatin [Crestor] 20 mg PO DAILY 02/04/23 01/08/24 History
[2024-01-08 12:38] VITALS: BP 146/94; PULSE 69; RESP 16; TEMP 98
== END ==
LOC: 3 N SLEEP 11:58
PROVIDERS: ATTEND Internal Medicine
DX: G47.33 Obstructive sleep apnea (adult) (pediatric) (principal); I10 Essential (primary) hypertension; J45.909 Unspecified asthma, uncomplicated; K21.9 Gastro-esophageal reflux disease without esophagitis; T81.89XA Other complications of procedures, not elsewhere classified, initial encounter; Z98.890 Other specified postprocedural states; Z90.49 Acquired absence of other specified parts of digestive tract; Z99.89 Dependence on other enabling machines and devices; Z79.899 Other long term (current) drug therapy
CPT/HCPCS: 99212

== ENCOUNTER 2024-01-10 11:08 | Emergency (ER) | payer BC ==
[2024-01-10 11:31] VITALS: BP 154/92; RESP 18; TEMP 99.2
--- NOTE | 2024-01-10 11:47 | ED ---
Wound/Laceration HPI - General Chief Complaint: Wound/Laceration Stated Complaint: L arm lac Time Seen by Provider: 01/10/24 11:47 Source: patient, RN notes reviewed Mode of arrival: ambulatory Limitations: no limitations - History of Present Illness Initial Comments: 64-year-old male presented to the ER with a chief complaint of a laceration. Patient reports last night he tripped over dumbbells and in attempting to catch himself his left hand went through a glass window. He reports a laceration on his left forearm. He does report mild pain to left toes. Denies any head injury, loss of consciousness, dizziness, lightheadedness, chest pain or shortness of breath prior to fall. Tetanus status unknown. He denies any limited range of motion or paresthesias. No other injuries. - Related Data Home Medications Medication Instructions Recorded Confirmed Montelukast [Singulair] 10 mg PO QAM 03/13/16 01/08/24 amLODIPine [Norvasc] 5 mg PO QAM 03/13/16 01/08/24 Albuterol Sulfate [Proair Hfa] 2 puff INHALATION Q4H PRN 03/28/17 01/08/24 Ezetimibe [Zetia] 10 mg PO DAILY 02/04/23 01/08/24 Famotidine [Pepcid] 20 mg PO DAILY 02/04/23 02/04/23 Losartan/Hydrochlorothiazide 1 tab PO DAILY 02/04/23 01/08/24 [Losartan-Hctz 100-25 mg Tab] Rosuvastatin [Crestor] 20 mg PO DAILY 02/04/23 01/08/24 Allergies Allergy/AdvReac Type Severity Reaction Status Date / Time No Known Allergies Allergy Verified 01/10/24 11:13 Review of Systems ROS Statement: Those systems with pertinent positive or pertinent negative responses have been documented in the HPI. ROS Other: All systems not noted in ROS Statement are negative. Past Medical History Past Medical History: GERD/Reflux, Hypertension Additional Past Medical History / Comment(s): SEASONAL ALLERGIES History of Any Multi-Drug Resistant Organisms: None Reported Past Surgical History: Cholecystectomy, Hernia Repair Additional Past Surgical History / Comment(s): RIGHT KNEE ARTHROSCOPIC, VARICOCELE SURGERY Past Anesthesia/Blood Transfusion Reactions: No Reported Reaction Past Psychological History: No Psychological Hx Reported Smoking Status: Never smoker Past Alcohol Use History: Occasional Past Drug Use History: None Reported - Past Family History Brother(s) Family Medical History: Cancer Additional Family Medical History / Comment(s): PROSTATE CANCER(2 brothers), SKIN CANCER(1 brother) Mother Family Medical History: Cancer Additional Family Medical History / Comment(s): COLON CANCER AND SKIN CANCER Father Family Medical History: Cancer Additional Family Medical History / Comment(s): SKIN CANCER General Exam - General Exam Comments Initial Comments: Visual Physical Exam Vital signs reviewed General: Well-appearing, nontoxic, no acute distress. Head: Normocephalic, atraumatic Eyes: PERRLA, EOMI ENT: Airway patent Chest: Nonlabored breathing Skin: No visual rash, normal skin tone Neuro: Alert and oriented 3 Musculoskeletal: No gross abnormalities Limitations: no limitations General appearance: alert, in no apparent distress Head exam: Present: atraumatic, normocephalic, normal inspection Respiratory exam: Present: normal lung sounds bilaterally. Absent: respiratory distress, wheezes, rales, rhonchi, stridor Cardiovascular Exam: Present: regular rate, normal rhythm, normal heart sounds. Absent: systolic murmur, diastolic murmur, rubs, gallop, clicks Extremities exam: Present: normal inspection, full ROM, normal capillary refill. Absent: tenderness, pedal edema, joint swelling, calf tenderness Neurological exam: Present: alert, oriented X3, CN II-XII intact Skin exam: Present: warm, dry, intact, normal color, other (1 cm superficial laceration to left forearm. No active bleeding. 2+ left radial pulse. Patient has full active range of motion.) Course Vital Signs 01/10/24 01/10/24 11:09 13:30 Temperature 99.2 F Pulse Rate 92 80 Respiratory 18 18 Rate Blood Pressure 154/92 O2 Sat by Pulse 94 L 100 Oximetry Medical Decision Making - Medical Decision Making I performed the quick note portion of this chart. Electronically signed by Nicolette Mcgee PA-C Was pt. sent in by a medical professional or institution ([facility], SOFTWARE ENGINEERING ANALYST, urgent care, hospital, or alf...) When possible be specific @ -No Did you speak to anyone other than the patient for history (EMS, parent, family, police, friend...)? What history was obtained from this source @ -No Did you review nursing and triage notes (agree or disagree)? Why? @ -I reviewed and agree with nursing and triage notes Were old charts reviewed (outside hosp., previous admission, EMS record, old E KG, old radiological studies, urgent care reports/EKG's, alf records)? Report findings @ -No old charts were reviewed Differential Diagnosis (chest pain, altered mental status, abdominal pain women, abdominal pain men, vaginal bleeding, weakness, fever, dyspnea, syncope, headache, dizziness, GI bleed, back pain, seizure, CVA, palpatations, mental health, musculoskeletal)? @ -Laceration, abrasion, contusion, avulsion, foreign body this list is not meant to be all-inclusive EKG interpreted by me (3pts min.). @ -None X-rays interpreted by me (1pt min.). @ -Left forearm x-ray interpreted by me negative for acute fractures or dislocations. No radiopaque foreign bodies. CT interpreted by me (1pt min.). @ -None done U/S interpreted by me (1pt. min.). @ -None done What testing was considered but not performed or refused? (CT, X-rays, U/S, labs)? Why? @ -Patient refused x-ray of foot. What meds were considered but not given or refused? Why? @ -None Did you discuss the management of the patient with other professionals (professionals i.e. , PA, SOFTWARE ENGINEERING ANALYST, lab, RT, psych nurse, social worker health services, remote sensing scientist, teacher, philanthropy officer, social work case manager)? Give summary @ -No Was smoking cessation discussed for >3mins.? @ -No Was critical care preformed (if so, how long)? @ -No Were there social determinants of health that impacted care today? How? (Homelessness, low income, unemployed, alcoholism, drug addiction, transportation, low edu. Level, literacy, decrease access to med. care, shelter, rehab)? @ -No Was there de-escalation of care discussed even if they declined (Discuss DNR or withdrawal of care, Hospice)? DNR status @ -No What co-morbidities impacted this encounter? (DM, HTN, Smoking, COPD, CAD, Cancer, CVA, ARF, Chemo, Hep., AIDS, mental health diagnosis, sleep apnea, m orbid obesity)? @ -None Was patient admitted / discharged? Hospital course, mention meds given and route, prescriptions, significant lab abnormalities, going to OR and other pertinent info. @ -Discharge. 64-year-old male presented to the ER with a chief complaint of a fall. Patient denied head injury or loss of consciousness. History and physical exam completed. Vitals stable. Patient no signs of acute distress and nontoxic-appearing. There was a 1 cm laceration to left forearm. No active bleeding. Left upper extremity neurovascular intact. Patient has full active range of motion. No acute neurological findings on exam. X-ray obtained to rule out foreign body. Left forearm x-ray negative for foreign bodies or other acute process. Tetanus updated. Laceration closed using Steri-Strips as sutures were deemed unnecessary. Strict return parameters discussed. Patient discharged in stable condition. Advised close follow-up with PCP. Patient verbally expressed understanding and agreement with care plan. Case discussed with ED attending, Dr. Hayes. Undiagnosed new problem with uncertain prognosis? @ -No Drug Therapy requiring intensive monitoring for toxicity (Heparin, Nitro, Insulin, Cardizem)? @ -No Were any procedures done? @ -No Diagnosis/symptom? @ -Laceration Acute, or Chronic, or Acute on Chronic? @ -Acute Uncomplicated (without systemic symptoms) or Complicated (systemic symptoms)? @ -Uncomplicated Side effects of treatment? @ -No Exacerbation, Progression, or Severe Exacerbation? @ -No Poses a threat to life or bodily function? How? (Chest pain, [place], [place], pneumonia, PE, COPD, DKA, ARF, appy, cholecystitis, CVA, Diverticulitis, Homicidal, Suicidal, threat to staff... and all critical care pts) @ -No - Radiology Data Radiology results: report reviewed, image reviewed Disposition Clinical Impression: Laceration Disposition: HOME SELF-CARE Condition: Stable Instructions (If sedation given, give patient instructions): Laceration (ED) Additional Instructions: Follow-up with PCP. Return to the ER for new or worsening concerns. Is patient prescribed a controlled substance at d/c from ED?: No Referrals: Kendal Saez MD [Primary Care Provider] - 1-2 days Time of Disposition: 13:00
--- NOTE | 2024-01-10 12:25 | XR ---
EXAMINATION TYPE: XR forearm LT DATE OF EXAM: 01/10/2024 COMPARISON: None HISTORY: Hand through window, laceration TECHNIQUE: 2 view left forearm FINDINGS: No acute fractures or dislocations. Some soft tissue injury may be present. No radiopaque f oreign bodies evident. IMPRESSION: 1. No acute osseous abnormality. 2. No radiopaque foreign bodies
[2024-01-10] MEDS: DIPH,PERTUS(ACELL)TETVAC-LF 0.5 ML VIAL IM ONE (13:24)
[2024-01-10 14:13] VITALS: PULSE 80
== END 2024-01-10 13:31 | disposition home or self-care (01) ==
LOC: EC 11:08
DX: S51.812A Laceration without foreign body of left forearm, initial encounter (principal); Z23 Encounter for immunization; W25.XXXA Contact with sharp glass, initial encounter
CPT/HCPCS: 90471; 90715; 99282

== ENCOUNTER → 2024-09-02 | Outpatient (CLI) | payer BC ==
[2024-09-02 11:48] VITALS: BP 150/91; PULSE 70; RESP 16; TEMP 98.3
--- NOTE | 2024-09-02 12:00 | P.PROGSL ---
Subjective DATE: 09/02/2024 FOLLOW UP VISIT. Patient with obstructive sleep apnea hypopnea syndrome return to sleep center for follow-up visit. Information from previous visit have been reviewed. Patient is using PAP equipment every night for the whole night, getting PAP supplies in time. The patient does not have significant problems with the mask, PAP unit and humidification. [place] sleepiness scale is 3, which is normal. I checked information from PAP unit. PAP unit pressure 5-11, average 9.3 cm H2O. Usage is 100% for more then 4 hours, average 8 hours per night. Leak is 13.6 l/m, which is in acceptable range. Apnea Hypopnea Index is 0.5, which is normal. MEDICATIONS have been reviewed, please see below. During physical exam: GENERAL: A pleasant patient without any distress. VITAL SIGNS: Please see below, weight is 236 lbs. HEENT: PERRLA, EOMI.low position of soft palate, Mallapati 4 . NECK: Supple. No JVD. LUNGS: Clear to percussion and to auscultation. Good air exchange. No wheezing or rhonchi. HEART: S1, S2 regular. ABDOMEN: Soft and nontender.[] EXTREMITIES: No clubbing or cyanosis. CUTLET MAKER PORK: Awake, alert, and oriented x3. No focal deficit. Impressions: 1. Obstructive sleep apnea-hypopnea syndrome. Patient demonstrated great compliance with treatment, benefiting from treatment. 2. Hypertension. 3. Asthma. 4. Acid reflux. 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 6. Status post right knee arthroscopic surgery. 7. Mild obesity. 8. Status post cholecystectomy. 9. Some restriction of nasal breathing. Plan: 1. Continue using PAP equipment every night for the whole night. 2. Sleep hygiene with regular time in bed for at least 7.5-8 hours 3. PAP unit should stay lower then position of the head. 4. Advised patient to remove all remaining water from humidifier canister daily and make it dry after each usage. Refill canister with fresh distilled water before each usage. 5. Watching weight. 6. Precautions related to driving. No driving if feel any sleepiness. 7. I will maintain prescription for PAP supplies including mask, tube, filters. 8. Follow up visit in 8 months or earlier if patient has any problems. Thank you very much for allowing me to participate in the management of your patient. Golden Scott MD, PhD, FAASM. Diplomat of [place] [employer], Sleep Medicine Board by [employer] [employer] Automotive Service Advisor of [facility] Objective - Vital Signs Vital Signs: Vital Signs Temp 98.3 F 09/02/24 11:47 Pulse 70 09/02/24 11:47 Resp 16 09/02/24 11:47 BP 150/91 09/02/24 11:47 Pulse Ox 96 09/02/24 11:47 FiO2 Intake & Output 09/01/24 09/02/24 09/02/24 18:59 06:59 18:59 Weight 107.048 kg Home Medications: Home Medications Medication Instructions Recorded Confirmed Type Montelukast [Singulair] 10 mg PO QAM 03/13/16 01/08/24 History amLODIPine [Norvasc] 5 mg PO QAM 03/13/16 01/08/24 History Albuterol Sulfate [Proair Hfa] 2 puff INHALATION Q4H PRN 03/28/17 01/08/24 History Ezetimibe [Zetia] 10 mg PO DAILY 02/04/23 01/08/24 History Famotidine [Pepcid] 20 mg PO DAILY 02/04/23 02/04/23 History Losartan/Hydrochlorothiazide 1 tab PO DAILY 02/04/23 01/08/24 History [Losartan-Hctz 100-25 mg Tab] Rosuvastatin [Crestor] 20 mg PO DAILY 02/04/23 01/08/24 History
== END ==
LOC: 3 N SLEEP 11:14
PROVIDERS: ATTEND Internal Medicine
DX: G47.33 Obstructive sleep apnea (adult) (pediatric) (principal); I10 Essential (primary) hypertension; J45.909 Unspecified asthma, uncomplicated; K21.9 Gastro-esophageal reflux disease without esophagitis; E66.9 Obesity, unspecified; Z96.651 Presence of right artificial knee joint; Z68.33 Body mass index [BMI] 33.0-33.9, adult; Z90.49 Acquired absence of other specified parts of digestive tract
CPT/HCPCS: 99212

== ENCOUNTER 2025-02-22 13:47 | Inpatient (IN) | payer BC ==
[2025-02-22 14:13] LABS: Bilirubin,Urine 1+ (Negative); Blood,Urine Negative (Negative); Color,Urine Yellow; Glucose,Urine (UA) Negative (Negative); Ketones,Urine Negative (Negative); Leukocyte Esterase,Urine Negative (Negative); Nitrite,Urine Negative (Negative); PH, Urine 5.5 (5.0-8.0); Protein,Urine Trace (Negative); Specific Gravity,Urine 1.036 (1.001-1.035); Urobilinogen,Urine 2.0 mg/dL (<2.0)
--- NOTE | 2025-02-22 15:13 | ED ---
General Adult HPI - General Source: patient, RN notes reviewed Mode of arrival: ambulatory Limitations: no limitations <Zora Michaud - Last Filed: 02/22/25 15:12> - General Source: patient, RN notes reviewed, old records reviewed Mode of arrival: ambulatory Limitations: no limitations <Penny Hernandez - Last Filed: 02/22/25 19:51> - General Chief complaint: Abdominal Pain Stated complaint: Abd pain Time Seen by Provider: 02/22/25 14:00 - History of Present Illness Initial comments: Quick [id number] male presenting to the emergency room with complaints of epigastric abdominal pain that started on Saturday feeling ageusia reflux of his GERD. Associated nausea and vomiting. States he has been constipated over the last few days and explains left lower quadrant pain that is now subsided. Denies chest pain, palpitations or difficulty breathing. Previous cholecystectomy. (Zora Michaud) 65-year-old male presented the ER for evaluation of abdominal pain. He states after getting off work Saturday morning he was experiencing an achy crampy epigastric abdominal pain. He correlated this pain to acid reflux. Patient states that he went to bed and upon waking up later in the day he had continued and mildly worsened pain. He does admit to nausea and vomiting. He denies hematemesis or coffee-ground emesis. He reports he did have mild relief of discomfort after vomiting. He also admits to frequent belching. Patient states he felt as if he was constipated and states he did pass a very small hard stool on Saturday. He does admit to flatulence. Patient reports yesterday he was feeling well enough to mow the lawn but states he might of "overdid it" as he still feeling ill. Patient admits abdomen appears distended. Patient also reports a left lower quadrant abdominal discomfort. Patient reports a history of cholecystectomy and ventral hernia repair with Dr. Lugo. He did take [id number] Tylenol and Advil for symptom control. He denies any fevers, chills, chest pain, shortness of breath, dizziness, lightheadedness, urinary complaints. (Penny Hernandez) - Related Data Home Medications Medication Instructions Recorded Confirmed Montelukast [Singulair] 10 mg PO DAILY 03/13/16 02/22/25 amLODIPine [Norvasc] 5 mg PO DAILY 03/13/16 02/22/25 Ezetimibe [Zetia] 10 mg PO DAILY 02/04/23 02/22/25 Famotidine [Pepcid] 20 mg PO DAILY PRN 02/04/23 02/22/25 Losartan/Hydrochlorothiazide 1 tab PO DAILY 02/04/23 02/22/25 [Losartan-Hctz 100-25 mg Tab] Allergies Allergy/AdvReac Type Severity Reaction Status Date / Time No Known Allergies Allergy Verified 02/22/25 18:28 Review of Systems ROS Other: All systems not noted in ROS Statement are negative. <Zora Michaud - Last Filed: 02/22/25 15:12> ROS Other: All systems not noted in ROS Statement are negative. <Penny Hernandez - Last Filed: 02/22/25 19:51> ROS Statement: Those systems with pertinent positive or pertinent negative responses have been documented in the HPI. Past Medical History Past Medical History: GERD/Reflux, Hypertension Additional Past Medical History / Comment(s): SEASONAL ALLERGIES History of Any Multi-Drug Resistant Organisms: None Reported Past Surgical History: Cholecystectomy, Hernia Repair Additional Past Surgical History / Comment(s): RIGHT KNEE ARTHROSCOPIC, VARICOCELE SURGERY Past Anesthesia/Blood Transfusion Reactions: No Reported Reaction Past Psychological History: No Psychological Hx Reported Smoking Status: Never smoker Past Alcohol Use History: Occasional Past Drug Use History: None Reported - Past Family History Brother(s) Family Medical History: Cancer Additional Family Medical History / Comment(s): PROSTATE CANCER(2 brothers), SKIN CANCER(1 brother) Mother Family Medical History: Cancer Additional Family Medical History / Comment(s): COLON CANCER AND SKIN CANCER Father Family Medical History: Cancer Additional Family Medical History / Comment(s): SKIN CANCER <Zora Michaud - Last Filed: 02/22/25 15:12> General Exam Limitations: no limitations <Zora Michaud - Last Filed: 02/22/25 15:12> Limitations: no limitations General appearance: alert, in no apparent distress Respiratory exam: Present: normal lung sounds bilaterally. Absent: respiratory distress, wheezes, rales, rhonchi, stridor Cardiovascular Exam: Present: regular rate, normal rhythm, normal heart sounds. Absent: systolic murmur, diastolic murmur, rubs, gallop, clicks GI/Abdominal exam: Present: soft, distended, tenderness (Left lower quadrant), hyperactive bowel sounds (Upper abdomen) Extremities exam: Present: normal inspection, full ROM, normal capillary refill. Absent: tenderness, pedal edema, joint swelling, calf tenderness Neurological exam: Present: alert, oriented X3, CN II-XII intact Skin exam: Present: warm, dry, intact, normal color. Absent: rash <Penny Hernandez - Last Filed: 02/22/25 19:51> - General Exam Comments Initial Comments: Visual Physical Exam Vital signs reviewed General: Well-appearing, nontoxic, no acute distress. Head: Normocephalic, atraumatic Eyes: PERRLA, EOMI ENT: Airway patent Chest: Nonlabored breathing Skin: No visual rash, normal skin tone Neuro: Alert and oriented 3 Musculoskeletal: No gross abnormalities (Stieler,Zora) Course <Penny Hernandez - Last Filed: 02/22/25 19:51> Vital Signs 02/22/25 02/22/25 13:55 19:14 Temperature 98.0 F Pulse Rate 93 72 Respiratory 18 18 Rate Blood Pressure 121/82 129/94 O2 Sat by Pulse 96 96 Oximetry - Reevaluation(s) Reevaluation #1: 02/22/25 19:16 Case discussed with general surgeon, . He would prefer patient follow-up with Dr. Lugo since patient under ventral wall hernia repair with her. 02/22/25 19:[address] Seaz who accepts admission. General surgery on consult. (Penny Hernandez) EKG Findings - EKG Comments: EKG Findings:: EKG taken at 19: 31 showing sinus rhythm. No ST segment elevations or depressions. No T wave inversions. Ventricular rate 70, MD inter kirsten 165, QRS duration 88, QT/QTc 384/405. <Penny Hernandez - Last Filed: 02/22/25 19:51> Medical Decision Making <Mauricio Michaudoe - Last Filed: 02/22/25 15:12> - Lab Data Result diagrams: 02/22/25 16:20 02/22/25 16:20 - Radiology Data Radiology results: report reviewed, image reviewed <Penny Hernandez - Last Filed: 02/22/25 19:51> - Medical Decision Making I completed the quick note portion of this chart signed Zora Michaud PA-C (Zora Michaud) Was pt. sent in by a medical professional or institution (CATALINA Melissa, ASSISTIVE TECHNOLOGY TRAINER, urgent care, hospital, or correction...) When possible be specific @ -No Did you speak to anyone other than the patient for history (EMS, parent, family, police, friend...)? What history was obtained from this source @ -, bedside, aiding in HPI past medical history. is concerned of Alloway's disease as she states patient has large abdomen, thin extremities, and buffalo hump. Did you review nursing and triage notes (agree or disagree)? Why? @ -I reviewed and agree with nursing and triage notes Were old charts reviewed (outside hosp., previous admission, EMS record, old EKG, old radiological studies, urgent care reports/EKG's, correction records)? Report findings @ -No old charts were reviewed Differential Diagnosis (chest pain, altered mental status, abdominal pain women, abdominal pain men, vaginal bleeding, weakness, fever, dyspnea, syncope, headache, dizziness, GI bleed, back pain, seizure, CVA, palpatations, mental h ealth, musculoskeletal)? @ -Differential Abdominal Pain Men:Appendicitis, cholecystitis, diverticulosis, ischemic bowel, pancreatitis, hepatitis, UTI, gastroenteritis, AAA, incarcerated hernia, bowel obstruction, constipation, inflammatory bowel, hepatitis, peptic ulcer disease, splenic infarction, perforated viscus, testicular torsion, this is not meant to be an all-inclusive list EKG interpreted by me (3pts min.). @ -As above X-rays interpreted by me (1pt min.). @ -KUB interpreted by me remarkable for air-fluid levels. CT interpreted by me (1pt min.). @ -CT abdomen pelvis showing dilated loops of small bowel with relative nondistention of distal small bowel correlate for partial bowel obstruction versus early complete bowel obstruction. Normal appendix. Prostamegaly. Bi lateral adrenal nodules stable from 12-11-2022. Colonic diverticulosis, redundant colon, postcholecystectomy changes. U/S interpreted by me (1pt. min.). @ -Gallbladder ultrasound showing hepatomegaly of 18.2 with moderate to severe hepatic steatosis. Mild perihepatic ascites fluid. Status postcholecystectomy no biliary ductal dilation. Common bile duct 0.5 cm. What testing was considered but not performed or refused? (CT, X-rays, U/S, labs)? Why? @ -None What meds were considered but not given or refused? Why? @ -Patient refused analgesic and antiemetic medications. Did you discuss the management of the patient with other professionals (professionals i.e. , PA, ASSISTIVE TECHNOLOGY TRAINER, lab, RT, psych nurse, licensed social worker, address change clerk, teacher, first officer and flight instructor, case loader operator)? Give summary @ -Case discussed with general surgeon, Dr. Vieyra( per patient's request) he prefers patient follows up with Dr. Lugo as patient has undergone ventral hernia repair with her prior. Case discussed with Dr. Saez, who is agreeable for medicine admission. Was smoking cessation discussed for >3mins.? @ -No Was critical care preformed (if so, how long)? @ -No Were there social determinants of health that impacted care today? How? (Homelessness, low income, unemployed, alcoholism, drug addiction, transportation, low edu. Level, literacy, decrease access to med. care, [facility], rehab)? @ -No Was there de-escalation of care discussed even if they declined (Discuss DNR or withdrawal of care, Hospice)? DNR status @ -No What co-morbidities impacted this encounter? (DM, HTN, Smoking, COPD, CAD, Cancer, CVA, ARF, Chemo, Hep., AIDS, mental health diagnosis, sleep apnea, morbid obesity)? @ -Hypertension, GERD, history of cholecystectomy, history of ventral wall hernia repair. Was patient admitted / discharged? Hospital course, mention meds given and route, prescriptions, significant lab abnormalities, going to OR and other pertinent info. @ -Admitted. 65-year-old male presented the ER for evaluation of abdominal pain. Workup initiated in triage given bowel availability in emergency department. Upon rooming, history and physical exam completed. Vital signs s table. Patient in no signs acute distress nontoxic-appearing. Abdominal exam remarkable for abdominal distention with tenderness noted to left lower quadrant. There is hyperactive bowel sounds noted in upper quadrants. Laboratory studies obtained remarkable for WBC 9.3, hemoglobin 13.9. Lactic 0.7, lipase 53. Hypokalemia 3.3. Urinalysis with trace protein and 1+ bilirubin no evidence of UTI. Given epigastric abdominal tenderness, gallbladder ultrasound ordered via triage showing hepatomegaly, mild perihepatic ascites fluid. KUB obtained in triage workup showing air-fluid levels of small bowel with no free air. Given these findings, CT abdomen pelvis was obtained showing findings concerning of partial bowel obstruction versus early complete bowel obstruction. Free fluid noted. Normal appendix. Patient provided with IV fluids in the emergency department. Patient refused analgesic or antiemetic medications. Upon reevaluation, patient resting comfortably on stretcher no sig ns of acute distress. Patient educated on laboratory and CT findings including but not limited to prostamegaly, adrenal nodules and concern of bowel obstruction. Patient reports prostatomegaly is known as he has had elevated PSA in the past. Given CT findings case discussed with general surgeon, Dr. Vieyra per patient's request. He is agreeable to be on consult. Case then discussed with patient's PCP, who accepts admission. NG tube placement pending Dr. Mark speaking with Dr. Vieyra. Patient admitted in stable condition for further evaluation and treatment, patient is agreeable. Case discussed with ED attending of Dr. Mark Undiagnosed new problem with uncertain prognosis? @ -No Drug Therapy requiring intensive monitoring for toxicity (Heparin, Nitro, Insulin, Cardizem)? @ -No Were any procedures done? @ -No Diagnosis/symptom? @ -Partial small bowel obstruction vs. early complete bowel obstruction/abdominal pain Acute, or Chronic, or Acute on Chronic? @ -Acute Uncomplicated (without systemic symptoms) or Complicated (systemic symptoms)? @ -Complicated Side effects of treatment? @ -No Exacerbation, Progression, or Severe Exacerbation? @ -No Poses a threat to life or bodily function? How? (Chest pain, [place], [place], pneumonia, PE, COPD, DKA, ARF, appy, cholecystitis, CVA, Diverticulitis, Homicidal, Suicidal, threat to staff... and all critical care pts) @ -Yes, bowel obstruction can led to bowel perforation (Penny Hernandez) - Lab Data Lab Results 02/22/25 02/22/25 02/22/25 Range/Units 14:05 16:20 16:20 WBC 9.34 (4.50-10.00) 10*3/uL RBC 4.40 (4.40-5.60) 10*6/uL Hgb 13.9 (13.0-17.0) g/dL Hct 39.2 L (39.6-50.0) % MCV 89.1 (80.0-97.0) fL MCH 31.6 (27.0-32.0) pg MCHC 35.5 (32.0-37.0) g/dL Plt Count 217 (140-440) 10*3/uL MPV 9.3 L (9.5-12.2) fL Immature Gran % (Auto) 0.4 % Neutrophils % 62.9 % Lymphocytes % 20.3 % Monocytes % 12.6 % Eosinophils % 3.3 % Basophils % 0.5 % Immature Gran # 0.04 (0.00-0.04) 10*3/uL Neutrophils # 5.86 (1.80-7.70) 10*3/uL Lymphocytes # 1.90 (0.90-5.00) 10*3/uL Monocytes # 1.18 H (0.20-1.00) 10*3/uL Eosinophils # 0.31 (0.04-0.35) 10*3/uL Basophils # 0.05 (0.00-0.10) 10*3/uL Sodium 138 (137-145) mmol/L Potassium 3.3 L (3.5-5.1) mmol/L Chloride 99 (98-107) mmol/L Carbon Dioxide 29 (22-30) mmol/L Anion Gap 10 mmol/L BUN 36 H (9-20) mg/dL Creatinine 0.89 (0.66-1.25) mg/dL Est GFR (CKD-EPI)AfAm >90 (>60 ml/min/1.73 sqM) Est GFR (CKD-EPI)NonAf >90 (>60 ml/min/1.73 sqM) Glucose 107 H (74-99) mg/dL Plasma Lactic Acid Handy (0.7-2.0) mmol/L Calcium 9.7 (8.4-10.2) mg/dL Total Bilirubin 1.0 (0.2-1.3) mg/dL AST 35 (17-59) U/L ALT 78 H (4-49) U/L Alkaline Phosphatase 53 (38-126) U/L Total Protein 6.6 (6.3-8.2) g/dL Albumin 4.2 (3.5-5.0) g/dL Lipase 53 (23-300) U/L Urine Color Yellow Urine Appearance Clear (Clear) Urine pH 5.5 (5.0-8.0) Ur Specific [place] 1.036 H (1.001-1.035) Urine Protein Trace H (Negative) Urine Glucose (UA) Negative (Negative) Urine Ketones Negative (Negative) Urine Blood Negative (Negative) Urine Nitrite Negative (Negative) Urine Bilirubin 1+ H (Negative) Urine Urobilinogen 2.0 (<2.0) mg/dL Ur Leukocyte Esterase Negative (Negative) 02/22/25 Range/Units 16:20 WBC (4.50-10.00) 10*3/uL RBC (4.40-5.60) 10*6/uL Hgb (13.0-17.0) g/dL Hct (39.6-50.0) % MCV (80.0-97.0) fL MCH (27.0-32.0) pg MCHC (32.0-37.0) g/dL Plt Count (140-440) 10*3/uL MPV (9.5-12.2) fL Immature Gran % (Auto) % Neutrophils % % Lymphocytes % % Monocytes % % Eosinophils % % Basophils % % Immature Gran # (0.00-0.04) 10*3/uL Neutrophils # (1.80-7.70) 10*3/uL Lymphocytes # (0.90-5.00) 10*3/uL Monocytes # (0.20-1.00) 10*3/uL Eosinophils # (0.04-0.35) 10*3/uL Basophils # (0.00-0.10) 10*3/uL Sodium (137-145) mmol/L Potassium (3.5-5.1) mmol/L Chloride (98-107) mmol/L Carbon Dioxide (22-30) mmol/L Anion Gap mmol/L BUN (9-20) mg/dL Creatinine (0.66-1.25) mg/dL Est GFR (CKD-EPI)AfAm (>60 ml/min/1.73 sqM) Est GFR (CKD-EPI)NonAf (>60 ml/min/1.73 sqM) Glucose (74-99) mg/dL Plasma Lactic Acid Handy 0.7 (0.7-2.0) mmol/L Calcium (8.4-10.2) mg/dL Total Bilirubin (0.2-1.3) mg/dL AST (17-59) U/L ALT (4-49) U/L Alkaline Phosphatase (38-126) U/L Total Protein (6.3-8.2) g/dL Albumin (3.5-5.0) g/dL Lipase (23-300) U/L Urine Color Urine Appearance (Clear) Urine pH (5.0-8.0) Ur Specific [place] (1.001-1.035) Urine Protein (Negative) Urine Glucose (UA) (Negative) Urine Ketones (Negative) Urine Blood (Negative) Urine Nitrite (Negative) Urine Bilirubin (Negative) Urine Urobilinogen (<2.0) mg/dL Ur Leukocyte Esterase (Negative) Disposition <Zora Michaud - Last Filed: 02/22/25 15:12> Time of Disposition: 19:47 <Penny Hernandez - Last Filed: 02/22/25 19:51> Clinical Impression: Abdominal pain, Bowel obstruction Disposition: ADMITTED IP TO THIS HOSP Condition: Stable Referrals: Kendal Saez MD [Primary Care Provider] - 1-2 days
--- NOTE | 2025-02-22 15:59 | XR ---
EXAMINATION TYPE: XR KUB DATE OF EXAM: 02/22/2025 3:37 PM COMPARISON: None CLINICAL INDICATION: Male, 65 years old with history of constipation; PHH, pain TECHNIQUE: One radiographic view of the abdomen was obtained. FINDINGS: No evidence for free intraperitoneal air. Cholecystectomy clips. Prominent air-fluid levels are present throughout. Some small bowel loops appear dilated up to 4.6 cm . However, some colonic air seems to be present in the sigmoid colon. Relative possibility of rectal air. Pelvic phlebolith. IMPRESSION: Small bowel loops dilated up to 4.6 cm with air-fluid levels. Some scattered colonic air remains. Cor relate for marked generalized ileus versus small bowel obstruction. No free air is seen. [facility], , 02/22/2025 3:56 PM
[2025-02-22 16:28] LABS: Basophils # (A) 0.05 10*3/uL (0.00-0.10); Basophils % (A) 0.5 %; Eosinophils # (A) 0.31 10*3/uL (0.04-0.35); Eosinophils % (A) 3.3 %; HCT 39.2 % (39.6-50.0); HGB 13.9 g/dL (13.0-17.0); Lymphocytes # (A) 1.90 10*3/uL (0.90-5.00); Lymphocytes % (A) 20.3 %; MCH 31.6 pg (27.0-32.0); MCHC 35.5 g/dL (32.0-37.0); MCV 89.1 fL (80.0-97.0); Monocytes # (A) 1.18 10*3/uL (0.20-1.00); Monocytes % (A) 12.6 %; Neutrophils # (A) 5.86 10*3/uL (1.80-7.70); Neutrophils % (A) 62.9 %; Platelet Count 217 10*3/uL (140-440); RBC 4.40 10*6/uL (4.40-5.60); RDW 11.6 % (11.5-14.5); WBC 9.34 10*3/uL (4.50-10.00)
--- NOTE | 2025-02-22 16:33 | US ---
EXAMINATION TYPE: US gallbladder DATE OF EXAM: 02/22/2025 COMPARISON: US 2017 CLINICAL INDICATION: Male, 65 years old with history of RUQ ab pain w/ N/V, hx choley, r/o choledoco; TECHNIQUE: Grayscale and color Doppler imaging of the right upper quadrant was performed. FINDINGS: EXAM MEASUREMENTS: Liver Length: 18.2 cm CBD: 0.5 cm Right Kidney: 10.8 x 5.4 x 5.7 cm Pancreas: Only the pancreatic body is seen. Head and tail obscured by bowel gas shadowing. Liver: enlarged and echogenic. Gallbladder: surgically absent Evidence for sonographic Looney's sign: no CBD: visualized portions wnl, limited by overlying bowel gas Right Kidney: wnl, no hydronephrosis. Free fluid seen in RUQ, mild perihepatic ascites. IMPRESSION: 1. Hepatomegaly of 18.2 cm with moderate to severe hepatic steatosis. 2. Mild perihepatic ascites fluid. Clinically correlate. 3. Status post cholecystectomy. No biliary ductal dilatation. [facility], , 02/22/2025 4:31 PM
[2025-02-22 16:40] LABS: ALT 78 U/L (4-49); AST 35 U/L (17-59); African American GFR (CKD) >90 (>60 ml/min/1.73 sqM); Albumin 4.2 g/dL (3.5-5.0); Alkaline Phosphatase 53 U/L (38-126); Anion Gap 10 mmol/L; Blood Urea Nitrogen 36 mg/dL (9-20); Calcium 9.7 mg/dL (8.4-10.2); Carbon Dioxide 29 mmol/L (22-30); Chloride 99 mmol/L (98-107); Glucose 107 mg/dL (74-99); Lipase 53 U/L (23-300); Non-African American GFR(CKD) >90 (>60 ml/min/1.73 sqM); Potassium 3.3 mmol/L (3.5-5.1); Sodium 138 mmol/L (137-145); Total Protein 6.6 g/dL (6.3-8.2)
[2025-02-22] MEDS: SODIUM CHLORIDE 0.9% 1,000 ML IV ONE (16:51)
--- NOTE | 2025-02-22 18:35 | CT ---
EXAMINATION TYPE: CT abdomen pelvis w con DATE OF EXAM: 02/22/2025 5:55 PM COMPARISON: CT 12/11/2022. CLINICAL INDICATION: Male, 65 years old with history of abd pain/constipation; abd pain/constipation TECHNIQUE: Axial CT abdomen pelvis w con;Sagittal and coronal reformats were created on a separate w orkstation. Contrast used:100 ml mL of Isovue 300 with IV Contrast, (none if empty) Oral contrast used: without Oral Contrast (none if empty) CT DLP: 1288.8 mGycm, Automated exposure control for dose reduction was used. FINDINGS: LOWER CHEST: Unremarkable ABDOMEN LIVER: Unremarkable GALLBLADDER AND BILE DUCTS: The gallbladder is surgically absent. PANCREAS: Unremarkable. SPLEEN: Scattered calcified granulomas. ADRENAL GLANDS: Indeterminate left adrenal 13 mm nodule. Nor indeterminate right adrenal nodule measu ring 14 x 8 mm. KIDNEYS AND URETERS: No evidence of hydronephrosis or obstructing renal calculus. The ureters are unr emarkable. PELVIS BLADDER: No evidence for wall thickening or mass given limitations of exam. REPRODUCTIVE: Prostate is enlarged in size measuring 4.8 cm in transverse dimension. ABDOMEN & PELVIS STOMACH AND BOWEL: As dilated loops of bowel in the left abdomen with relative nondistention and lowe r quadrant. There is extensive stool throughout the colon however. Scattered colonic diverticula. Red undant colon in the upper abdomen in the sigmoid colon. The appendix is visualized and within normal limits. PERITONEUM/RETROPERITONEUM: No evidence of pneumoperitoneum. Small amount of free fluid is seen layer ing throughout the abdomen. VASCULATURE: No evidence of aortic aneurysm. MUSCULOSKELETAL: No acute osseous abnormalities LYMPH NODES: No gross evidence for lymphadenopathy. SOFT TISSUE/ABDOMINAL WALL: Unremarkable IMPRESSION: 1. Dilated loops of small bowel with relative nondistention of the distal small bowel. Correlate for partial bowel obstruction versus early complete bowel obstruction. 2. Normal-appearing appendix. 3. Prostatomegaly, correlate with serum PSA. 4. Indeterminate bilateral adrenal nodules are stable back to 12/11/2022 and likely benign. 5. Colonic diverticulosis. 6. Redundant colon. 7. Postcholecystectomy changes. [facility], , 02/22/2025 6:33 PM
[2025-02-22] MEDS ORDERED: NALOXONE 0.4 MG/ML 1 ML VIAL IV PRN (19:41)
[2025-02-22] MEDS ORDERED: HYDROmorphone 0.5 MG/0.5 ML SYRINGE IVP PRN (19:43)
[2025-02-22] MEDS ORDERED: KETOROLAC 15 MG/ML 1 ML VIAL IVP PRN (19:43)
[2025-02-22] MEDS: SODIUM CHLORIDE 0.9% 1,000 ML IV STA (21:08)
[2025-02-23] MEDS ORDERED: FAMOTIDINE 20 MG TAB PO PRN (10:24)
--- NOTE | 2025-02-23 10:44 | P.GSCN ---
History of Present Illness Consult date: 02/23/25 History of present illness: CHIEF COMPLAINT: Abdominal pain HISTORY OF PRESENT ILLNESS: This is a 65-year-old male who presented to the hospital with complaints of abdominal pain across the upper abdomen and constipation. Patient reports that prior to his pain he had eaten carrots and a lot of celery and then Saturday morning he started to have severe epigastric abdom inal pain. Patient had 2 episodes of vomiting and has been feeling very nauseous. He also had been feeling constipated. He was able to have a bowel movement on Saturday and then a second smaller bowel movement later in the day. Patient has continued to be able to pass flatus. He denies any prior history of bowel obstruction. He had a CT scan abdomen pelvis that had reported partial small bowel obstruction versus early complete small bowel obstruction. Also noted redundant colon. Patient denies any prior history of bowel obstruction. He does report that last colonoscopy was about a year ago and has a known history of colon polyps. Patient complains that he is feels very dry and dehy drated. Patient had also noted that his blood pressure had been on the lower side at home and he had felt dizzy. Patient reports that he is feeling better today. Denies any abdominal pain. PAST MEDICAL HISTORY: See below PAST SURGICAL HISTORY: See below MEDICATIONS: See below ALLERGIES: See below SOCIAL HISTORY: No illicit drug use. REVIEW OF SYSTEMS: CONSTITUTIONAL: Denies fever or chills. HEENT: Denies blurred vision, vision changes, or eye pain. Denies hemoptysis CARDIOVASCULAR: Denies chest pain or pressure. RESPIRATORY: No shortness of breath. GASTROINTESTINAL: See HPI for pertinent findings HEMATOLOGIC: Denies bleeding disorders. GENITOURINARY: Denies any blood in urine or increased urinary frequency. SKIN: Denies pruitis. Denies rash. PHYSICAL EXAM: VITAL SIGNS: Reviewed GENERAL: Well-developed in no acute distress. HEENT: No sclera icterus. Extraocular movements grossly intact. Moist buccal mucosa. Head is atraumatic, normocephalic. No nasal drainage. ABDOMEN: Soft. Nondistended. Nontender NEUROLOGIC: Alert and oriented. Cranial nerves II through XII grossly intact. LABORATORY DATA: WBC is 9.34 Hgb 13.9 platelets 217 Sodium is 138 potassium is 3.3 creatinine 0.89 IMAGING: CT scan abdomen pelvis reports dilated loops of small bowel with relative nondistention of the distal small bowel. Correlate for partial bowel obstruction versus early complete bowel obstruction. Normal-appearing appendix. Prostamegaly. Indeterminate bilateral adrenal nodules likely benign. Colonic diverticulosis. Redundant colon. Post cholecystectomy changes. ASSESSMENT: 1. Partial small bowel obstruction 2. Hypokalemia PLAN: - Advance diet to clear liquids - Continue IV fluids - Encourage patient to increase activity level - Replace potassium Physician Knifeman note has been reviewed by physician. Signing provider agrees with the documented findings, assessment, and plan of care. 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 Based on total visit time, I have performed more than 50% of the visit. As above: Patient with presentation and CAT scan suggestive of small bowel obstruction. Clinically improved today. Having stools. No further pain. Still feels a bit bloated. Minimal tenderness on exam. Continue clear liquids for now. Will repeat films tomorrow. Past Medical History Past Medical History: GERD/Reflux, Hypertension Additional Past Medical History / Comment(s): SEASONAL ALLERGIES History of Any Multi-Drug Resistant Organisms: None Reported Past Surgical History: Cholecystectomy, Hernia Repair Additional Past Surgical History / Comment(s): RIGHT KNEE ARTHROSCOPIC, VARICOCELE SURGERY Past Anesthesia/Blood Transfusion Reactions: No Reported Reaction Past Psychological History: No Psychological Hx Reported Smoking Status: Never smoker Past Alcohol Use History: Occasional Past Drug Use History: None Reported - Past Family History Brother(s) Family Medical History: Cancer Additional Family Medical History / Comment(s): PROSTATE CANCER(2 brothers), SKIN CANCER(1 brother) Mother Family Medical History: Cancer Additional Family Medical History / Comment(s): COLON CANCER AND SKIN CANCER Father Family Medical History: Cancer Additional Family Medical History / Comment(s): SKIN CANCER Medications and Allergies Home Medications Medication Instructions Recorded Confirmed Type Montelukast [Singulair] 10 mg PO DAILY 03/13/16 02/22/25 History amLODIPine [Norvasc] 5 mg PO DAILY 03/13/16 02/22/25 History Ezetimibe [Zetia] 10 mg PO DAILY 02/04/23 02/22/25 History Famotidine [Pepcid] 20 mg PO DAILY PRN 02/04/23 02/22/25 History Losartan/Hydrochlorothiazide 1 tab PO DAILY 02/04/23 02/22/25 History [Losartan-Hctz 100-25 mg Tab] Allergies Allergy/AdvReac Type Severity Reaction Status Date / Time No Known Allergies Allergy Verified 02/22/25 18:28 Surgical - Exam Vital Signs Temp Pulse Resp BP Pulse Ox 98.0 F 93 18 121/82 96 02/22/25 13:55 02/22/25 13:55 02/22/25 13:55 02/22/25 13:55 02/22/25 13:55 Results - Labs 02/22/25 16:20 02/22/25 16:20 Abnormal Lab Results - Last 24 Hours (Table) 02/22/25 02/22/25 02/22/25 Range/Units 14:05 16:20 16:20 Hct 39.2 L (39.6-50.0) % MPV 9.3 L (9.5-12.2) fL Monocytes # 1.18 H (0.20-1.00) 10*3/uL Potassium 3.3 L (3.5-5.1) mmol/L BUN 36 H (9-20) mg/dL Glucose 107 H (74-99) mg/dL ALT 78 H (4-49) U/L Ur Specific [place] 1.036 H (1.001-1.035) Urine Protein Trace H (Negative) Urine Bilirubin 1+ H (Negative) Diabetes panel 02/22/25 Range/Units 16:20 Sodium 138 (137-145) mmol/L Potassium 3.3 L (3.5-5.1) mmol/L Chloride 99 (98-107) mmol/L Carbon Dioxide 29 (22-30) mmol/L BUN 36 H (9-20) mg/dL Creatinine 0.89 (0.66-1.25) mg/dL Glucose 107 H (74-99) mg/dL Calcium 9.7 (8.4-10.2) mg/dL AST 35 (17-59) U/L ALT 78 H (4-49) U/L Alkaline Phosphatase 53 (38-126) U/L Total Protein 6.6 (6.3-8.2) g/dL Albumin 4.2 (3.5-5.0) g/dL Calcium panel 02/22/25 Range/Units 16:20 Calcium 9.7 (8.4-10.2) mg/dL Albumin 4.2 (3.5-5.0) g/dL Pituitary panel 02/22/25 Range/Units 16:20 Sodium 138 (137-145) mmol/L Potassium 3.3 L (3.5-5.1) mmol/L Chloride 99 (98-107) mmol/L Carbon Dioxide 29 (22-30) mmol/L BUN 36 H (9-20) mg/dL Creatinine 0.89 (0.66-1.25) mg/dL Glucose 107 H (74-99) mg/dL Calcium 9.7 (8.4-10.2) mg/dL Adrenal panel 02/22/25 Range/Units 16:20 Sodium 138 (137-145) mmol/L Potassium 3.3 L (3.5-5.1) mmol/L Chloride 99 (98-107) mmol/L Carbon Dioxide 29 (22-30) mmol/L BUN 36 H (9-20) mg/dL Creatinine 0.89 (0.66-1.25) mg/dL Glucose 107 H (74-99) mg/dL Calcium 9.7 (8.4-10.2) mg/dL Total Bilirubin 1.0 (0.2-1.3) mg/dL AST 35 (17-59) U/L ALT 78 H (4-49) U/L Alkaline Phosphatase 53 (38-126) U/L Total Protein 6.6 (6.3-8.2) g/dL Albumin 4.2 (3.5-5.0) g/dL
[2025-02-23] MEDS: POTASSIUM CHLORIDE ER 20 MEQ TAB.ER PO STA (12:04)
[2025-02-23] MEDS: SODIUM CHLORIDE 0.9% 1,000 ML IV SCH (18:41)
--- NOTE | 2025-02-24 07:01 | P.HPIM ---
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, and he had a breakfast Saturday morning, and he developed to have a significant abdominal pain across his abdomen, associated with nausea but no vomiting, and he was felt quite bloated, he ended up going to the bathroom he had a small bowel movement followed by diarrhea and lots of gas, and he had felt same next day he ended up going mowing the lawn but he was not dragging himself because of generalized fatigue and malaise, and he was not feeling well, Saturday he went to his apartment and he went back home but he was not feeling well he was supposed to go to have a night assistant in the hospital he ended up coming to the emergency department for evaluation because he close abdominal distention and abdominal pain, initially had abdominal x-ray that showed small bowel dilatation at 4.6 cm with some air in the colon, suggestive of ileus versus partial small bowel obstruction, he ended up going for an ultrasound of the abdomen as well that showed the gallbladder was surgically absent, hepatomegaly at 18 cm, with significant hepatic steatosis, Moises ascitic fluid around the liver, with noted common bile duct dilatation, this was followed by CT scan of the abdomen pelvis that showed dilated dilated small bowel just without evidence of any significant transition point suggestive of possible partial small bowel obstruction, also bilateral adrenal adenoma that been stable from December 2022 the left 13 mm to the right 14 x 8 mm, enlarged prostate, patient was not throwing up at this time, he was started on IV fluid resuscitation, and he was admitted to the hospital general surgery consultation from Dr. Chawla was obtained. REVIEW OF SYSTEMS: Constitutional: No documented fever, no chills, no night sweats. No weight change. No weakness, fatigue or lethargy. No daytime sleepiness. EENT: No headache. No blurred vision or double vision, no loss of vision. No loss of Hearing, no ringing in the ears, no dizziness. No nasal drainage or congestion. No epistaxis. No sore throat. Lungs: No shortness of breath, no cough, no sputum production. No wheezing. Reports dyspnea with activity. Cardiovascular: No chest pain, no lower extremity edema. No palpitations. No paroxysmal nocturnal dyspnea. No orthopnea. No lightheadedness or dizziness. No syncopal episodes. Abdominal: Reports abdominal pain. Mild nausea, vomiting. No diarrhea. Positive for constipation. No bloody or tarry stools reports loss of appetite. Genitourinary: No dysuria, increased frequency, urgency. No urinary retention. Musculoskeletal: No myalgias. No muscle weakness, no gait dysfunction, no frequent falls. No back pain. No neck pain. Integumentary: No wounds, no lesions. No rash or pruritus. No unusual bruising. No change in hair or nails. Neurologic: No aphasia. No facial droop. No change in mentation. No head injury. No headache. No paralysis. No paresthesia. Psychiatric: No depression. No anxiety. No mood swings. Endocrine: No abnormal blood sugars. No weight change. PAST MEDICAL HISTORY: Hypertension and hypertensive cardiovascular disease. Mixed hyperlipidemia. Allergic rhinitis due to pollen GERD without esophagitis. Erectile dysfunction Obstructive sleep apnea. Exercise-induced bronchospasm. Bilateral adrenal adenomas. Hepatomegaly with hepatic steatosis Enlarged prostate. PAST SURGICAL HISTORY: Cholecystectomy. Umbilical hernia repair. Varicocele. Right knee arthroscopic surgery Colonoscopy 02/05/2023 SOCIAL HISTORY: Alcohol about 1-2 drinks on a daily basis, patient drinks about 2 cups of coffee every day, patient denies any marijuana use patient denies any tobacco use FAMILY HISTORY: Father 9-year-old with diabetes mellitus (CVA, mother 91 with hypertension and hyperlipidemia also history of colon cancer at the age of 84, patient has 4 brothers 2 with prostate cancer patient has 1 adopted daughter. PHYSICAL EXAMINATION: General: 65-year-old male laying down in bed in no distress. HEENT: Head is atraumatic, normocephalic, pupils were equal round reactive to light and recommendation, extraocular muscle movement were intact, sclera nonicteric, conjunctivae were pale, mucous membranes of the mouth are somewhat dry. Neck: Supple, no JVP, normal carotid upstroke bilaterally, no lymphadenopathy. Chest: Decreased breath sounds at the bases, few rhonchi, no expiratory wheezes, no chest wall tenderness, no intercostal retractions. Heart: First heart sound is normal, second heart sounds normal there is no gallop or murmur no rubs or heaves. Abdomen: Soft, mild tenderness positive abdominal distention, depressed bowel sounds. No rebound or guarding Extremities: There is no edema no calf tenderness DP +2 bilaterally. Neurologic examination: Patient is awake alert and oriented x3 cranial nerves II-12 appear grossly intact, muscle power were 5 out of 5 in upper extremities and 5 out of 5 in bilateral lower extremities, deep tendon reflexes normal bilaterally. ASSESSMENT AND PLAN: 1. Abdominal pain likely due to partial small bowel obstruction, patient is passing gas this point in time, he has some abdominal distention, is not throwing up at this point in time, will hold off NG tube, continue IV fluid resuscitation, continue clear liquid diet, patient may need to have a Dulcolax suppository since he has significant amount of stool in the colon, increase activity level, General Surgery consultation appreciated, repeat abdominal x-ray tomorrow morning. Continue current pain management, and follow-up with the dimitrios ent very closely. 2. Hypertension and hypertensive cardiovascular disease. Patient on losartan 100/25 mg once a day, amlodipine 5 mg once a day, monitor patient blood pressure very luis 3. Mixed hyperlipidemia. Continue patient on Zetia 10 mg once every day he was supposed to be on rosuvastatin 20 mg once daily but is not taking at this time, 4. Allergic rhinitis due to pollen continue montelukast 10 mg at bedtime. 5. Exercise-induced bronchospasm. Continue albuterol HFA 2 puff inhalation every 4 hours as needed. 6. Enlarged prostate. Will follow-up with the patient as an outpatient for physical examination and prostate examination, along with PSA. 7. Without esophagitis. Continue Pepcid 20 mg orally once every day. 8. Bilateral adrenal adenoma likely benign present since 12/29/2022. Will follow-up with the patient as an outpatient. May need to have an MRI of the adrenal glands and more labs as an outpatient. This is likely nonfunctioning adenoma discussed with the patient and his . 9. DVT prophylaxis. Continue Lovenox 40 mg subcutaneously every 24 hours, continue bilateral knee-high MONIK hose. Increase activity level. 10. GI prophylaxis. Continue Pepcid 20 mg once every day. 11. Admit to inpatient. Estimated length of stay 2 midnights. 12. Patient is full code. Past Medical History Past Medical History: GERD/Reflux, Hypertension Additional Past Medical History / Comment(s): SEASONAL ALLERGIES History of Any Multi-Drug Resistant Organisms: None Reported Past Surgical History: Cholecystectomy, Hernia Repair Additional Past Surgical History / Comment(s): RIGHT KNEE ARTHROSCOPIC, VARICOCELE SURGERY Past Anesthesia/Blood Transfusion Reactions: No Reported Reaction Past Psychological History: No Psychological Hx Reported Smoking Status: Never smoker Past Alcohol Use History: Occasional Past Drug Use History: None Reported - Past Family History Brother(s) Family Medical History: Cancer Additional Family Medical History / Comment(s): PROSTATE CANCER(2 brothers), SKIN CANCER(1 brother) Mother Family Medical History: Cancer Additional Family Medical History / Comment(s): COLON CANCER AND SKIN CANCER Father Family Medical History: Cancer Additional Family Medical History / Comment(s): SKIN CANCER Medications and Allergies Home Medications Medication Instructions Recorded Confirmed Type Montelukast [Singulair] 10 mg PO DAILY 03/13/16 02/22/25 History amLODIPine [Norvasc] 5 mg PO DAILY 03/13/16 02/22/25 History Ezetimibe [Zetia] 10 mg PO DAILY 02/04/23 02/22/25 History Famotidine [Pepcid] 20 mg PO DAILY PRN 02/04/23 02/22/25 History Losartan/Hydrochlorothiazide 1 tab PO DAILY 02/04/23 02/22/25 History [Losartan-Hctz 100-25 mg Tab] Allergies Allergy/AdvReac Type Severity Reaction Status Date / Time No Known Allergies Allergy Verified 02/22/25 18:28 Physical Exam Vitals: Vital Signs Temp Pulse Pulse Resp BP BP Pulse Ox 02/23/25 07:08 98.0 F 71 18 118/81 98 02/23/25 01:50 97.6 F 18 02/22/25 22:15 98.2 F 84 18 134/86 99 02/22/25 19:14 72 18 129/94 96 02/22/25 13:55 98.0 F 93 18 121/82 96 Intake and Output 02/22/25 02/23/25 02/23/25 22:59 06:59 14:59 Other: # Voids 1 Weight 99.79 kg Results CBC & Chem 7: 07/14/25 16:20 02/22/25 16:20 Labs: Abnormal Lab Results - Last 24 Hours (Table) 02/22/25 02/22/25 02/22/25 Range/Units 14:05 16:20 16:20 Hct 39.2 L (39.6-50.0) % MPV 9.3 L (9.5-12.2) fL Monocytes # 1.18 H (0.20-1.00) 10*3/uL Potassium 3.3 L (3.5-5.1) mmol/L BUN 36 H (9-20) mg/dL Glucose 107 H (74-99) mg/dL ALT 78 H (4-49) U/L Ur Specific [place] 1.036 H (1.001-1.035) Urine Protein Trace H (Negative) Urine Bilirubin 1+ H (Negative)
[2025-02-24 07:52] LABS: Basophils # (A) 0.04 X 10*3/uL (0.00-0.10); Basophils % (A) 0.5 %; Eosinophils # (A) 0.26 X 10*3/uL (0.04-0.35); Eosinophils % (A) 3.5 %; HCT 35.7 % (39.6-50.0); HGB 12.2 g/dL (13.0-17.0); Immature Grans, Automated 0.50 %; Lymphocytes # (A) 1.64 X 10*3/uL (0.90-5.00); Lymphocytes % (A) 22.1 %; MCH 30.7 pg (27.0-32.0); MCHC 34.2 g/dL (32.0-37.0); MCV 89.9 FL (80.0-97.0); Monocytes # (A) 0.78 X 10*3/uL (0.20-1.00); Monocytes % (A) 10.5 %; NRBC Per 100 WBC 0 X 10*3/uL (0.00-0.01); Neutrophils # (A) 4.66 X 10*3/uL (1.80-7.70); Neutrophils % (A) 62.9 %; Platelet Count 192 X 10*3/uL (140-440); RBC 3.97 X 10*6/uL (4.40-5.60); RDW 11.8 % (11.5-14.5); WBC 7.42 X 10*3/uL (4.50-10.00)
[2025-02-24 08:01] LABS: BUN/Creat Ratio 19.71 Ratio (12.00-20.00); Blood Urea Nitrogen 13.8 mg/dL (9.0-27.0); Chloride 108 mmol/L (96-109); Glucose 95 mg/dL (70-110); Potassium 3.4 mmol/L (3.5-5.5); Sodium 142 mmol/L (135-145)
[2025-02-24 08:02] LABS: ALT 54 U/L (10-49); AST 25 U/L (14-35); Albumin 3.9 g/dL (3.8-4.9); Albumin/Globulin Ratio 1.95 Ratio (1.60-3.17); Alkaline Phosphatase 49 U/L (41-126); Anion Gap 10.20 mmol/L (4.00-12.00); Calcium 8.0 mg/dL (8.7-10.3); Carbon Dioxide 23.8 mmol/L (21.6-31.8); Globulin 2.0 g/dL (1.6-3.3); Total Protein 5.9 g/dL (6.2-8.2)
[2025-02-24] MEDS: EZETIMIBE 10 MG TAB PO SCH (08:33)
[2025-02-24] MEDS: MONTELUKAST 10 MG TAB PO SCH (08:33)
[2025-02-24] MEDS: ENOXAPARIN 40 MG/0.4 ML SYRINGE SQ SCH (08:33)
[2025-02-24] MEDS: amLODIPine 5 MG TAB PO SCH (08:34)
[2025-02-24] MEDS: LOSARTAN-HCTZ 50-12.5 MG 1 EACH TAB PO SCH (08:40)
--- NOTE | 2025-02-24 08:46 | XR ---
EXAMINATION TYPE: XR abdomen 2V DATE OF EXAM: 02/24/2025 6:17 AM COMPARISON: 02/22/2025 CLINICAL INDICATION: Male, 65 years old with history of Follow-up SBO; [facility] TECHNIQUE: Two views of the abdomen were obtained. FINDINGS: Lung bases are clear. No evidence for free intraperitoneal air. Dilated small bowel with air-fluid levels remain. Small bowel loops are dilated measuring up to 5.1 m versus 4.6 cm, previously. There is persistent scattered, residual colonic air especially at the tra nsverse colon and splenic flexure of the colon though with possibility distally. Cholecystectomy clip s. Left-sided pelvic inlet. IMPRESSION: Ongoing dilated small bowel loops with air-fluid levels. Currently measuring up to 5.1 cm versus 4.6 cm, previously. Some scattered residual colonic air also again noted. [facility], , 02/24/2025 8:43 AM
--- NOTE | 2025-02-24 12:20 | P.PN ---
Subjective Progress Note Date: 02/24/25 SURGICAL PROGRESS NOTE CHIEF COMPLAINT: SBO HISTORY OF PRESENT ILLNESS: Patient did have liquidy stool and flatus. He does report that his abdomen feels bloated and some mild discomfort across the upper abdomen. Abdominal x-ray reports ongoing dilated small bowel loops with air- fluid levels. Currently measuring up to 5.1 cm versus 4.6 cm. Some scattered residual colonic air also again noted. Afebrile. WBC 7.42 Hgb 12.2 potassium 3.4 PHYSICAL EXAM: VITAL SIGNS: Reviewed. GENERAL: Well-developed in no acute distress. ABDOMEN: Soft. mildly distended. Mild discomfort with palpation across the upper abdomen NEUROLOGIC: Alert and oriented. Cranial nerves II through XII grossly intact. ASSESSMENT: 1. Small Bowel obstruction 2. Hypokalemia PLAN: - Ordered small bowel follow-through with Gastrografin for diagnostic and therapeutic effect for SBO - Encourage patient to increase activity level - Continue clear liquids - Replace potassium. Due to recurrent potassium check magnesium level Physician Gun Tester note has been reviewed by physician. Signing provider agrees with the documented findings, assessment, and plan of care. Objective - Vital Signs Vital signs: Vital Signs Temp 97.4 F L 02/24/25 06:56 Pulse 72 02/24/25 06:56 Resp 18 02/24/25 06:56 BP 150/91 02/24/25 06:56 Pulse Ox 98 02/24/25 06:56 FiO2 Intake & Output 02/23/25 02/24/25 02/24/25 18:59 06:59 18:59 Other: Voiding Method Toilet # Voids 3 2 # Bowel Movements 1 6 - Labs CBC & Chem 7: 02/24/25 02:42 02/24/25 02:42 Labs: Abnormal Lab Results - Last 24 Hours (Table) 02/24/25 02/24/25 Range/Units 02:42 02:42 RBC 3.97 L (4.40-5.60) X 10*6/uL Hgb 12.2 L (13.0-17.0) g/dL Hct 35.7 L (39.6-50.0) % Potassium 3.4 L (3.5-5.5) mmol/L Calcium 8.0 L (8.7-10.3) mg/dL ALT 54 H (10-49) U/L Total Protein 5.9 L (6.2-8.2) g/dL
[2025-02-24] MEDS: POTASSIUM CHLORIDE ER 20 MEQ TAB.ER PO STA (13:02)
--- NOTE | 2025-02-24 13:39 | P.PN ---
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, and he had a breakfast Saturday morning, and he developed to have a significant abdominal pain across his abdomen, associated with nausea but no vomiting, and he was felt quite bloated, he ended up going to the bathroom he had a small bowel movement followed by diarrhea and lots of gas, and he had felt same next day he ended up going mowing the lawn but he was not dragging himself because of generalized fatigue and malaise, and he was not feeling well, Saturday he went to his apartment and he went back home but he was not feeling well he was supposed to go to have a 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 shift supervisor 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 hospital he ended up coming to the emergency department for evaluation because he close abdominal distention and abdominal pain, initially had abdominal x-ray that showed small bowel dilatation at 4.6 cm with some air in the colon, suggestive of ileus versus partial small bowel obstruction, he ended up going for an ultrasound of the abdomen as well that showed the gallbladder was quintana rgically absent, hepatomegaly at 18 cm, with significant hepatic steatosis, Moises ascitic fluid around the liver, with noted common bile duct dilatation, this was followed by CT scan of the abdomen pelvis that showed dilated dilated small bowel just without evidence of any significant transition point suggestive of possible partial small bowel obstruction, also bilateral adrenal adenoma that been stable from December 2022 the left 13 mm to the right 14 x 8 mm, enlarged prostate, patient was not throwing up at this time, he was started on IV fluid resuscitation, and he was admitted to the hospital general surgery consultation from Dr. Vieyra was obtained. 02/24: Patient sitting up in bed no apparent distress, is feeling better today, he is passing gas, he continues to be on IV fluid resuscitation, Lipitor evaluation is reviewed, abdominal x-ray was reviewed, patient will be given Dulcolax suppository 10 mg x 1, follow-up with the patient very closely, general surgery consultation appreciated, continue clear liquid diet for now.general surgery has ordered a small bowel follow-through with Gastrografin for diagnostic and therapeutic effect for SBO. REVIEW OF SYSTEMS: Constitutional: No documented fever, no chills, no night sweats. No weight change. No weakness, fatigue or lethargy. No daytime sleepiness. EENT: No headache. No blurred vision or double vision, no loss of vision. No loss of Hearing, no ringing in the ears, no dizziness. No nasal drainage or congestion. No epistaxis. No sore throat. Lungs: No shortness of breath, no cough, no sputum production. No wheezing. Reports dyspnea with activity. Cardiovascular: No chest pain, no lower extremity edema. No palpitations. No paroxysmal nocturnal dyspnea. No orthopnea. No lightheadedness or dizziness. No syncopal episodes. Abdominal: Reports abdominal pain. Mild nausea, vomiting. No diarrhea. Positive for constipation. No bloody or tarry stools reports loss of appetite. Genitourinary: No dysuria, increased frequency, urgency. No urinary retention. Musculoskeletal: No myalgias. No muscle weakness, no gait dysfunction, no frequent falls. No back pain. No neck pain. Integumentary: No wounds, no lesions. No rash or pruritus. No unusual bruising. No change in hair or nails. Neurologic: No aphasia. No facial droop. No change in mentation. No head injury. No headache. No paralysis. No paresthesia. Psychiatric: No depression. No anxiety. No mood swings. Endocrine: No abnormal blood sugars. No weight change. PHYSICAL EXAMINATION: General: 65-year-old male laying down in bed in no distress. HEENT: Head is atraumatic, normocephalic, pupils were equal round reactive to light and recommendation, extraocular muscle movement were intact, sclera nonicteric, conjunctivae were pale, mucous membranes of the mouth are somewhat dry. Neck: Supple, no JVP, normal carotid upstroke bilaterally, no lymphadenopathy. Chest: Decreased breath sounds at the bases, few rhonchi, no expiratory wheezes, no chest wall tenderness, no intercostal retractions. Heart: First heart sound is normal, second heart sounds normal there is no gallop or murmur no rubs or heaves. Abdomen: Soft, mild tenderness positive abdominal distention, depressed bowel sounds. No rebound or guarding Extremities: There is no edema no calf tenderness DP +2 bilaterally. Neurologic examination: Patient is awake alert and oriented x3 cranial nerves II-12 appear grossly intact, muscle power were 5 out of 5 in upper extremities and 5 out of 5 in bilateral lower extremities, deep tendon reflexes normal bilaterally. ASSESSMENT AND PLAN: 1. Abdominal pain likely due to partial small bowel obstruction, patient is passing gas this point in time, he has some abdominal distention, is not throwing up at this point in time, will hold off NG tube, continue IV fluid resuscitation, continue clear liquid diet, patient may need to have a Dulcolax suppository since he has significant amount of stool in the colon, increase activity level, General Surgery consultation appreciated. General surgery has ordered a small bowel follow-through with Gastrografin for diagnostic and therapeutic effect for SBO. Continue current pain management, and follow-up with the patient very closely. 2. Hypertension and hypertensive cardiovascular disease. Patient on losartan 100/25 mg once a day, amlodipine 5 mg once a day, monitor patient blood pressure very luis 3. Mixed hyperlipidemia. Continue patient on Zetia 10 mg once every day he was supposed to be on rosuvastatin 20 mg once daily but is not taking at this time, 4. Allergic rhinitis due to pollen continue montelukast 10 mg at bedtime. 5. Exercise-induced bronchospasm. Continue albuterol HFA 2 puff inhalation every 4 hours as needed. 6. Enlarged prostate. Will follow-up with the patient as an outpatient for physical examination and prostate examination, along with PSA. 7. Without esophagitis. Continue Pepcid 20 mg orally once every day. 8. Bilateral adrenal adenoma likely benign present since 12/29/2022. Will follow-up with the patient as an outpatient. May need to have an MRI of the adrenal glands and more labs as an outpatient. This is likely nonfunctioning adenoma discussed with the patient and his . 9. DVT prophylaxis. Continue Lovenox 40 mg subcutaneously every 24 hours, continue bilateral knee-high MONIK hose. Increase activity level. 10. GI prophylaxis. Continue Pepcid 20 mg once every day. Objective - Vital Signs Vital signs: Vital Signs Temp 97.4 F L 02/24/25 06:56 Pulse 72 02/24/25 06:56 Resp 18 02/24/25 06:56 BP 150/91 07/16/25 06:56 Pulse Ox 98 02/24/25 06:56 FiO2 Intake & Output 02/23/25 02/24/25 02/24/25 18:59 06:59 18:59 Other: Voiding Method Toilet # Voids 3 2 # Bowel Movements 1 6 - Labs CBC & Chem 7: 02/24/25 02:42 02/24/25 02:42
[2025-02-25 08:32] LABS: Anion Gap 9.30 mmol/L (4.00-12.00); BUN/Creat Ratio 7.14 Ratio (12.00-20.00); Blood Urea Nitrogen 5.0 mg/dL (9.0-27.0); Calcium 7.8 mg/dL (8.7-10.3); Carbon Dioxide 24.7 mmol/L (21.6-31.8); Chloride 108 mmol/L (96-109); Glucose 103 mg/dL (70-110); Potassium 3.1 mmol/L (3.5-5.5); Sodium 142 mmol/L (135-145)
--- NOTE | 2025-02-25 09:59 | P.PN ---
Subjective Progress Note Date: 02/25/25 SURGICAL PROGRESS NOTE CHIEF COMPLAINT: SBO HISTORY OF PRESENT ILLNESS: Patient had loose BM. Still continues to have some discomfort across the upper abdomen. He is scheduled for small bowel follow-thr ough this morning. Afebrile. Potassium 3.1 magnesium 2.0 PHYSICAL EXAM: VITAL SIGNS: Reviewed. GENERAL: Well-developed in no acute distress. ABDOMEN: Soft. mildly distended. Mild discomfort with palpation across the upper abdomen NEUROLOGIC: Alert and oriented. Cranial nerves II through XII grossly intact. ASSESSMENT: 1. Small Bowel obstruction 2. Hypokalemia PLAN: -Patient undergoing small bowel follow-through today -Replace potassium Physician Noc Analyst note has been reviewed by physician. Signing provider agrees with the documented findings, assessment, and plan of care. I have personally seen and examined the patient, reviewed the NUT STEAMER /PAs history, exam and MDM and agree with the assessment and plan as written. Based on total visit time, I have performed more than 50% of the visit. As above: Small bowel series reviewed. Patient having multiple liquid stools. Feels nauseated. Suspect partial bowel obstruction. Patient reluctant to proceed with surgery. We have decided to proceed with repeat abdominal x-rays tomorrow. If no bowel dilation present may gradually advance diet and hold off on surgical intervention. If bowel loops are noted to be still dilated with proximal bowel contrast recommend laparoscopic, possible open lysis of adhesions with possible bowel resection. Objective - Vital Signs Vital signs: Vital Signs Temp 98.0 F 02/25/25 07:26 Pulse 68 02/25/25 07:26 Resp 18 02/25/25 07:26 BP 122/76 02/25/25 07:26 Pulse Ox 95 02/25/25 07:26 FiO2 Intake & Output 02/24/25 02/25/25 02/25/25 18:59 06:59 18:59 Other: Voiding Method Toilet # Voids 3 # Bowel Movements 0 - Labs CBC & Chem 7: 02/24/25 02:42 02/25/25 05:24 Labs: Abnormal Lab Results - Last 24 Hours (Table) 02/25/25 Range/Units 05:24 Potassium 3.1 L (3.5-5.5) mmol/L BUN 5.0 L (9.0-27.0) mg/dL BUN/Creatinine Ratio 7.14 L (12.00-20.00) Ratio Calcium 7.8 L (8.7-10.3) mg/dL
[2025-02-25] MEDS: POTASSIUM CHLORIDE ER 20 MEQ TAB.ER PO STA (10:58)
--- NOTE | 2025-02-25 11:47 | P.PN ---
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, and he had a breakfast Saturday morning, and he developed to have a significant abdominal pain across his abdomen, associated with nausea but no vomiting, and he was felt quite bloated, he ended up going to the bathroom he had a small bowel movement followed by diarrhea and lots of gas, and he had felt same next day he ended up going mowing the lawn but he was not dragging himself because of generalized fatigue and malaise, and he was not feeling well, Saturday he went to his apartment and he went back home but he was not feeling well 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 he ended up coming to the emergency department for evaluation because he close abdominal distention and abdominal pain, initially had abdominal x-ray that showed small bowel dilatation at 4.6 cm with some air in the colon, suggestive of ileus versus partial small bowel obstruction, he ended up going for an ultrasound of the abdomen as well that showed the gallbladder was quintana rgically absent, hepatomegaly at 18 cm, with significant hepatic steatosis, Moises ascitic fluid around the liver, with noted common bile duct dilatation, this was followed by CT scan of the abdomen pelvis that showed dilated dilated small bowel just without evidence of any significant transition point suggestive of possible partial small bowel obstruction, also bilateral adrenal adenoma that been stable from December 2022 the left 13 mm to the right 14 x 8 mm, enlarged prostate, patient was not throwing up at this time, he was started on IV fluid resuscitation, and he was admitted to the hospital general surgery consultation from Dr. Vieyra was obtained. 02/24: Patient sitting up in bed no apparent distress, is feeling better today, he is passing gas, he continues to be on IV fluid resuscitation, Lipitor evaluation is reviewed, abdominal x-ray was reviewed, patient will be given Dulcolax suppository 10 mg x 1, follow-up with the patient very closely, general surgery consultation appreciated, continue clear liquid diet for now.general surgery has ordered a small bowel follow-through with Gastrografin for diagnostic and therapeutic effect for SBO. 02/25: Patient underwent small bowel follow-through he continues to be somewhat bloated, not as bad as yesterday, he denies any chest pain, shortness of breath, he has no nausea or vomiting, on and off abdominal pain, not as bad as yesterday , we will follow-up with the patient very closely, good diet, plan is to follow- up with the patient hopefully will be discharged home tomorrow morning. REVIEW OF SYSTEMS: Constitutional: No documented fever, no chills, no night sweats. No weight change. No weakness, fatigue or lethargy. No daytime sleepiness. EENT: No headache. No blurred vision or double vision, no loss of vision. No loss of Hearing, no ringing in the ears, no dizziness. No nasal drainage or congestion. No epistaxis. No sore throat. Lungs: No shortness of breath, no cough, no sputum production. No wheezing. Reports dyspnea with activity. Cardiovascular: No chest pain, no lower extremity edema. No palpitations. No paroxysmal nocturnal dyspnea. No orthopnea. No lightheadedness or dizziness. No syncopal episodes. Abdominal: Reports abdominal pain. Mild nausea, vomiting. No diarrhea. Positive for constipation. No bloody or tarry stools reports loss of appetite. Genitourinary: No dysuria, increased frequency, urgency. No urinary retention. Musculoskeletal: No myalgias. No muscle weakness, no gait dysfunction, no frequent falls. No back pain. No neck pain. Integumentary: No wounds, no lesions. No rash or pruritus. No unusual bruising. No change in hair or nails. Neurologic: No aphasia. No facial droop. No change in mentation. No head injury. No headache. No paralysis. No paresthesia. Psychiatric: No depression. No anxiety. No mood swings. Endocrine: No abnormal blood sugars. No weight change. PHYSICAL EXAMINATION: General: 65-year-old male laying down in bed in no distress. HEENT: Head is atraumatic, normocephalic, pupils were equal round reactive to light and recommendation, extraocular muscle movement were intact, sclera nonicteric, conjunctivae were pale, mucous membranes of the mouth are somewhat dry. Neck: Supple, no JVP, normal carotid upstroke bilaterally, no lymphadenopathy. Chest: Decreased breath sounds at the bases, few rhonchi, no expiratory wh eezes, no chest wall tenderness, no intercostal retractions. Heart: First heart sound is normal, second heart sounds normal there is no gallop or murmur no rubs or heaves. Abdomen: Soft, mild tenderness positive abdominal distention, depressed bowel sounds. No rebound or guarding Extremities: There is no edema no calf tenderness DP +2 bilaterally. Neurologic examination: Patient is awake alert and oriented x3 cranial nerves II-12 appear grossly intact, muscle power were 5 out of 5 in upper extremities and 5 out of 5 in bilateral lower extremities, deep tendon reflexes normal bilaterally. ASSESSMENT AND PLAN: 1. Abdominal pain likely due to partial small bowel obstruction, patient is pas sing gas this point in time, continue with clear liquid diet, continue and follow-up with small bowel follow-through. General surgery is following 2. Hypertension and hypertensive cardiovascular disease. Patient on losartan 100/25 mg once a day, amlodipine 5 mg once a day, monitor patient blood pressure very luis 3. Mixed hyperlipidemia. Continue patient on Zetia 10 mg once every day he was supposed to be on rosuvastatin 20 mg once daily but is not taking at this time, 4. Allergic rhinitis due to pollen continue montelukast 10 mg at bedtime. 5. Exercise-induced bronchospasm. Continue albuterol HFA 2 puff inhalation every 4 hours as needed. 6. Enlarged prostate. Will follow-up with the patient as an outpatient for physical examination and prostate examination, along with PSA. 7. Without esophagitis. Continue Pepcid 20 mg orally once every day. 8. Bilateral adrenal adenoma likely benign present since 12/29/2022. Will follow-up with the patient as an outpatient. May need to have an MRI of the adrenal glands and more labs as an outpatient. This is likely nonfunctioning adenoma discussed with the patient and his . 9. DVT prophylaxis. Continue Lovenox 40 mg subcutaneously every 24 hours, continue bilateral knee-high MONIK hose. Increase activity level. 10. GI prophylaxis. Continue Pepcid 20 mg once every day. 11. Hypokalemia change IV fluid to D5 half-normal saline with 20 KCl, started patient on 20 mill equivalent daily.. 12. Home tomorrow morning. Objective - Vital Signs Vital signs: Vital Signs Temp 98.0 F 02/25/25 07:26 Pulse 68 02/25/25 07:26 Resp 18 02/25/25 07:26 BP 122/76 02/25/25 07:26 Pulse Ox 95 02/25/25 07:26 FiO2 Intake & Output 02/24/25 02/25/25 02/25/25 18:59 06:59 18:59 Other: Voiding Method Toilet # Voids 3 # Bowel Movements 0 - Labs CBC & Chem 7: 02/24/25 02:42 02/25/25 05:24 Labs: Abnormal Lab Results - Last 24 Hours (Table) 02/25/25 Range/Units 05:24 Potassium 3.1 L (3.5-5.5) mmol/L BUN 5.0 L (9.0-27.0) mg/dL BUN/Creatinine Ratio 7.14 L (12.00-20.00) Ratio Calcium 7.8 L (8.7-10.3) mg/dL
--- NOTE | 2025-02-25 12:03 | FL ---
EXAMINATION TYPE: FL small bowel follow through DATE OF EXAM: 02/25/2025 COMPARISON: 02/22/2025 CT scan CLINICAL INDICATION: Male, 65 years old with history of abdominal distention, SBO; [facility], TECHNIQUE: A single contrast small bowel follow through is performed utilizing barium. COMPARISON: None FINDINGS: Knitting Inspector image of the abdomen shows no gross abnormality. The small bowel study shows normal transit to the colon in less than 150 minutes. Contrast is seen wi thin the colon on the delayed images. The small bowel loops appear distended measuring a maximal dime nsion of 4.9 cm. IMPRESSION: Multiple dilated small bowel loops. Delayed transit into the colon. Findings are suggestive of partia l small bowel obstruction versus severe ileus. [facility], , 02/25/2025 11:47 AM
[2025-02-25] MEDS: ONDANSETRON 4 MG/2 ML VIAL IVP PRN (12:51)
[2025-02-25] MEDS: D5-0.45% NACL WITH KCL 20MEQ/L 1,000 ML IV SCH (13:51)
[2025-02-26 05:02] LABS: Basophils # (A) 0.02 10*3/uL (0.00-0.10); Basophils % (A) 0.3 %; Eosinophils # (A) 0.25 10*3/uL (0.04-0.35); Eosinophils % (A) 3.9 %; HCT 32.6 % (39.6-50.0); HGB 11.6 g/dL (13.0-17.0); Lymphocytes # (A) 1.86 10*3/uL (0.90-5.00); Lymphocytes % (A) 28.8 %; MCH 31.8 pg (27.0-32.0); MCHC 35.6 g/dL (32.0-37.0); MCV 89.3 fL (80.0-97.0); Monocytes # (A) 0.57 10*3/uL (0.20-1.00); Monocytes % (A) 8.8 %; Neutrophils # (A) 3.73 10*3/uL (1.80-7.70); Neutrophils % (A) 57.7 %; Platelet Count 202 10*3/uL (140-440); RBC 3.65 10*6/uL (4.40-5.60); RDW 11.9 % (11.5-14.5); WBC 6.46 10*3/uL (4.50-10.00)
[2025-02-26 05:19] LABS: African American GFR (CKD) >90 (>60 ml/min/1.73 sqM); Anion Gap 8 mmol/L; Blood Urea Nitrogen 6 mg/dL (9-20); Calcium 8.5 mg/dL (8.4-10.2); Carbon Dioxide 28 mmol/L (22-30); Chloride 106 mmol/L (98-107); Glucose 109 mg/dL (74-99); Magnesium 1.9 mg/dL (1.6-2.3); Non-African American GFR(CKD) >90 (>60 ml/min/1.73 sqM); Potassium 3.4 mmol/L (3.5-5.1); Sodium 142 mmol/L (137-145)
[2025-02-26] MEDS: POTASSIUM CHLORIDE ER 20 MEQ TAB.ER PO SCH (08:21)
--- NOTE | 2025-02-26 08:22 | XR ---
EXAMINATION TYPE: XR abdomen 2V DATE OF EXAM: 02/26/2025 7:14 AM COMPARISON: 02/25/2025 CLINICAL INDICATION: Male, 65 years old with history of Follow-up SBO; [facility] TECHNIQUE: Two views of the abdomen were obtained. FINDINGS: Lung bases are clear. No evidence for free intraperitoneal air. Cholecystectomy clips. Oral contrast has progressed throughout the colon extending distally to the rectum. There is dilated small bowel loops appeared to have improved somewhat currently measuring up to 3.5 cm versus 5.2 cm, previously. IMPRESSION: Increasing colonic air with oral contrast material having progressed throughout the colon. Small jorge l loops show some improvement currently measuring about 3.5 cm in caliber versus 5.2 cm, previously. Findings may reflect slowly improving small bowel obstruction. [facility], , 02/26/2025 8:20 AM
--- NOTE | 2025-02-26 14:27 | P.PN ---
Subjective Progress Note Date: 02/26/25 Principal diagnosis: Bowel obstruction Patient feels better today. No nausea or vomiting. Denies pain. Feels less bloated. Said he had numerous loose stools yesterday. Passing flatus. Repeat x-rays today are improved. Objective - Vital Signs Vital signs: Vital Signs Temp 98.3 F 02/26/25 06:41 Pulse 66 02/26/25 06:41 Resp 17 02/26/25 06:41 BP 139/77 02/26/25 06:41 Pulse Ox 96 02/26/25 06:41 FiO2 Intake & Output 02/25/25 02/26/25 02/26/25 18:59 06:59 18:59 Other: Voiding Method Toilet # Voids 3 2 - Exam Abdomen: Soft, nontender, nondistended - Labs CBC & Chem 7: 02/26/25 04:08 02/26/25 04:08 Labs: Abnormal Lab Results - Last 24 Hours (Table) 02/26/25 02/26/25 Range/Units 04:08 04:08 RBC 3.65 L (4.40-5.60) 10*6/uL Hgb 11.6 L (13.0-17.0) g/dL Hct 32.6 L (39.6-50.0) % MPV 9.3 L (9.5-12.2) fL Potassium 3.4 L (3.5-5.1) mmol/L BUN 6 L (9-20) mg/dL Creatinine 0.63 L (0.66-1.25) mg/dL Glucose 109 H (74-99) mg/dL Assessment and Plan (1) Bowel obstruction Narrative/Plan: 65-year-old male with partial small bowel obstruction. Clinically improved despite small bowel series yesterday morning showing possible persistent partial bowel obstruction. Today's x-rays are improved. Discussed options with patient. Proceeding with surgery versus slowly advancing diet reviewed as options. He would like to avoid surgery still if possible. Will begin full liquid diet. If tolerates plan either slow advancement of diet here as inpa tient or possibly as outpatient. Will contact patient this afternoon to discuss further and see how he was doing. Current Visit: Yes Status: Acute Code(s): K56.609 - UNSP INTESTNL OBST, UNSP TO PARTIAL VERSUS COMPLETE OBST SNOMED Code(s): 43386745
--- NOTE | 2025-02-26 15:02 | P.PN ---
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, and he had a breakfast Saturday morning, and he developed to have a significant abdominal pain across his abdomen, associated with nausea but no vomiting, and he was felt quite bloated, he ended up going to the bathroom he had a small bowel movement followed by diarrhea and lots of gas, and he had felt same next day he ended up going mowing the lawn but he was not dragging himself because of generalized fatigue and malaise, and he was not feeling well, Saturday he went to his apartment and he went back home but he was not feeling well he was supposed to go to have a shift production supervisor in the hospital he ended up coming to the emergency department for evaluation because he close abdominal distention and abdominal pain, initially had abdominal x-ray that showed small bowel dilatation at 4.6 cm with some air in the colon, suggestive of ileus versus partial small bowel obstruction, he ended up going for an ultrasound of the abdomen as well that showed the gallbladder was quintana rgically absent, hepatomegaly at 18 cm, with significant hepatic steatosis, Moises ascitic fluid around the liver, with noted common bile duct dilatation, this was followed by CT scan of the abdomen pelvis that showed dilated dilated small bowel just without evidence of any significant transition point suggestive of possible partial small bowel obstruction, also bilateral adrenal adenoma that been stable from December 2022 the left 13 mm to the right 14 x 8 mm, enlarged prostate, patient was not throwing up at this time, he was started on IV fluid resuscitation, and he was admitted to the hospital general surgery consultation from Dr. Vieyra was obtained. 02/24: Patient sitting up in bed no apparent distress, is feeling better today, he is passing gas, he continues to be on IV fluid resuscitation, Lipitor evaluation is reviewed, abdominal x-ray was reviewed, patient will be given Dulcolax suppository 10 mg x 1, follow-up with the patient very closely, general surgery consultation appreciated, continue clear liquid diet for now.general surgery has ordered a small bowel follow-through with Gastrografin for diagnostic and therapeutic effect for SBO. 02/25: Patient underwent small bowel follow-through he continues to be somewhat bloated, not as bad as yesterday, he denies any chest pain, shortness of breath, he has no nausea or vomiting, on and off abdominal pain, not as bad as yesterday , we will follow-up with the patient very closely, good diet, plan is to follow- up with the patient hopefully will be discharged home tomorrow morning. 02/26: Patient is sitting up in chair in no apparent distress, he has been tolerating full liquid diet very well, will advance his diet to soft diet, his abdominal x-ray showed less distended small bowel, with air in the colon, resolving partial small bowel obstruction, continue activity, continue with soft diet, patient can be discharged home and follow-up with me as an outpatient next week. REVIEW OF SYSTEMS: Constitutional: No documented fever, no chills, no night sweats. No weight change. No weakness, fatigue or lethargy. No daytime sleepiness. EENT: No headache. No blurred vision or double vision, no loss of vision. No loss of Hearing, no ringing in the ears, no dizziness. No nasal drainage or congestion. No epistaxis. No sore throat. Lungs: No shortness of breath, no cough, no sputum production. No wheezing. Reports dyspnea with activity. Cardiovascular: No chest pain, no lower extremity edema. No palpitations. No paroxysmal nocturnal dyspnea. No orthopnea. No lightheadedness or dizziness. No syncopal episodes. Abdominal: Reports abdominal pain. Mild nausea, vomiting. No diarrhea. Positive for constipation. No bloody or tarry stools reports loss of appetite. Genitourinary: No dysuria, increased frequency, urgency. No urinary retention. Musculoskeletal: No myalgias. No muscle weakness, no gait dysfunction, no frequent falls. No back pain. No neck pain. Integumentary: No wounds, no lesions. No rash or pruritus. No unusual bruising. No change in hair or nails. Neurologic: No aphasia. No facial droop. No change in mentation. No head injury. No headache. No paralysis. No paresthesia. Psychiatric: No depression. No anxiety. No mood swings. Endocrine: No abnormal blood sugars. No weight change. PHYSICAL EXAMINATION: General: 65-year-old male laying down in bed in no distress. HEENT: Head is atraumatic, normocephalic, pupils were equal round reactive to light and recommendation, extraocular muscle movement were intact, sclera nonicteric, conjunctivae were pale, mucous membranes of the mouth are somewhat dry. Neck: Supple, no JVP, normal carotid upstroke bilaterally, no lymphadenopathy. Chest: Decreased breath sounds at the bases, few rhonchi, no expiratory wheeze s, no chest wall tenderness, no intercostal retractions. Heart: First heart sound is normal, second heart sounds normal there is no gallop or murmur no rubs or heaves. Abdomen: Soft, mild tenderness positive abdominal distention, depressed bowel sounds. No rebound or guarding Extremities: There is no edema no calf tenderness DP +2 bilaterally. Neurologic examination: Patient is awake alert and oriented x3 cranial nerves II-12 appear grossly intact, muscle power were 5 out of 5 in upper extremities and 5 out of 5 in bilateral lower extremities, deep tendon reflexes normal bilaterally. ASSESSMENT AND PLAN: 1. Abdominal pain likely due to partial small bowel obstruction, patient is passing gas this point in time, continue with clear liquid diet, continue and follow-up with small bowel follow-through. General surgery is following 2. Hypertension and hypertensive cardiovascular disease. Patient on losartan 100/25 mg once a day, amlodipine 5 mg once a day, monitor patient blood pressure very luis 3. Mixed hyperlipidemia. Continue patient on Zetia 10 mg once every day he was supposed to be on rosuvastatin 20 mg once daily but is not taking at this time, 4. Allergic rhinitis due to pollen continue montelukast 10 mg at bedtime. 5. Exercise-induced bronchospasm. Continue albuterol HFA 2 puff inhalation every 4 hours as needed. 6. Enlarged prostate. Will follow-up with the patient as an outpatient for physical examination and prostate examination, along with PSA. 7. Without esophagitis. Continue Pepcid 20 mg orally once every day. 8. Bilateral adrenal adenoma likely benign present since 12/29/2022. Will follow-up with the patient as an outpatient. May need to have an MRI of the adrenal glands and more labs as an outpatient. This is likely nonfunctioning adenoma discussed with the patient and his . 9. DVT prophylaxis. Continue Lovenox 40 mg subcutaneously every 24 hours, continue bilateral knee-high MONIK hose. Increase activity level. 10. GI prophylaxis. Continue Pepcid 20 mg once every day. 11. Hypokalemia change IV fluid to D5 half-normal saline with 20 KCl, started patient on 20 mill equivalent daily.. 12. Patient is medically stable for discharge. Objective - Vital Signs Vital signs: Vital Signs Temp 98.3 F 02/26/25 06:41 Pulse 66 02/26/25 06:41 Resp 17 02/26/25 06:41 BP 139/77 02/26/25 06:41 Pulse Ox 96 02/26/25 06:41 FiO2 Intake & Output 02/25/25 02/26/25 02/26/25 18:59 06:59 18:59 Other: Voiding Method Toilet # Voids 3 2 - Labs CBC & Chem 7: 02/26/25 04:08 02/26/25 04:08 Labs: Abnormal Lab Results - Last 24 Hours (Table) 02/26/25 02/26/25 Range/Units 04:08 04:08 RBC 3.65 L (4.40-5.60) 10*6/uL Hgb 11.6 L (13.0-17.0) g/dL Hct 32.6 L (39.6-50.0) % MPV 9.3 L (9.5-12.2) fL Potassium 3.4 L (3.5-5.1) mmol/L BUN 6 L (9-20) mg/dL Creatinine 0.63 L (0.66-1.25) mg/dL Glucose 109 H (74-99) mg/dL
--- NOTE | 2025-02-26 15:04 | P.DS ---
Providers Date of admission: 02/22/25 19:45 Expected date of discharge: 02/26/25 Attending physician: Kendal Saez Consults: 02/22/25 19:41 Consult Physician Urgent Consulting Provider: Tone Vieyra Reason/Comments: SBO Do you want consulting provider notified?: Already Contacted Primary care physician: Kendal Saez [facility] Course: HISTORY OF PRESENT ILLNESS: This is a 65-year-old male with a previous medical history significant for hypertension and hypertensive vascular disease, mixed hyperlipidemia, allergic rhinitis, GERD without esophagitis, erectile dysfunction, obstructive sleep apnea, exercise-induced bronchospasm, patient presented to the emergency department (because of increased abdominal distention with increased abdominal pain that started last Saturday night after 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, and he had a breakfast Saturday morning, and he developed to have a significant abdominal pain across his abdomen, associated with nausea but no vomiting, and he was felt quite bloated, he ended up going to the bathroom he had a small bowel movement followed by diarrhea and lots of gas, and he had felt same next day he ended up going mowing the lawn but he was not dragging himself because of generalized fatigue and malaise, and he was not feeling well, Saturday he went to his apartment and he went back home but he was not feeling well he was supposed to go to have a 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 he ended up coming to the emergency department for evaluation because he close abdominal distention and abdominal pain, initially had abdominal x-ray that showed small bowel dilatation at 4.6 cm with some air in the colon, suggestive of ileus versus partial small bowel obstruction, he ended up going for an ultrasound of the abdomen as well that showed the gallbladder was surgically absent, hepatomegaly at 18 cm, with significant hepatic steatosis, Moises ascitic fluid around the liver, with noted common bile duct dilatation, this was followed by CT scan of the abdomen pelvis that showed dilated dilated small bowel just without evidence of any significant transition point suggestive of possible partial small bowel obstruction, also bilateral adrenal adenoma that been stable from December 2022 the left 13 mm to the right 14 x 8 mm, enlarged prostate, patient was not throwing up at this time, he was started on IV fluid resuscitation, and he was admitted to the hospital general surgery consultation from Dr. Vieyra was obtained. 02/24: Patient sitting up in bed no apparent distress, is feeling better today, he is passing gas, he continues to be on IV fluid resuscitation, Lipitor evaluation is reviewed, abdominal x-ray was reviewed, patient will be given Dulcolax suppository 10 mg x 1, follow-up with the patient very closely, general surgery consultation appreciated, continue clear liquid diet for now.general surgery has ordered a small bowel follow-through with Gastrografin for diagnostic and therapeutic effect for SBO. 02/25: Patient underwent small bowel follow-through he continues to be somewhat bloated, not as bad as yesterday, he denies any chest pain, shortness of breath, he has no nausea or vomiting, on and off abdominal pain, not as bad as yesterday, we will follow-up with the patient very closely, good diet, plan is to follow-up with the patient hopefully will be discharged home tomorrow morning. 02/26: Patient is sitting up in chair in no apparent distress, he has been tolerating full liquid diet very well, will advance his diet to soft diet, his abdominal x-ray showed less distended small bowel, with air in the colon, resolving partial small bowel obstruction, continue activity, continue with soft diet, patient can be discharged home and follow-up with me as an outpatient next week. Discharge diagnoses: 1. Abdominal pain likely due to partial small bowel obstruction. 2. Hypertension and hypertensive cardiovascular disease. 3. Mixed hyperlipidemia. 4. Allergic rhinitis due to pollen continue 5. Exercise-induced bronchospasm. 6. Enlarged prostate. 7. GERD Without esophagitis. 8. Bilateral adrenal adenoma likely benign present since 12/29/2022. 9. Hypokalemia and hypophosphatemia. Patient Condition at Discharge: Stable Plan - Discharge Summary Discharge Rx Participant: Yes New Discharge Prescriptions: No Action Montelukast [Singulair] 10 mg PO DAILY amLODIPine [Norvasc] 5 mg PO DAILY Ezetimibe [Zetia] 10 mg PO DAILY Losartan/Hydrochlorothiazide [Losartan-Hctz 100-25 mg Tab] 1 tab PO DAILY Famotidine [Pepcid] 20 mg PO DAILY PRN PRN Reason: Gi Upset Discharge Medication List Montelukast [Singulair] 10 mg PO DAILY 03/13/16 [History] amLODIPine [Norvasc] 5 mg PO DAILY 03/13/16 [History] Ezetimibe [Zetia] 10 mg PO DAILY 02/04/23 [History] Famotidine [Pepcid] 20 mg PO DAILY PRN 02/04/23 [History] Losartan/Hydrochlorothiazide [Losartan-Hctz 100-25 mg Tab] 1 tab PO DAILY 02/04/23 [History] Follow up Appointment(s)/Referral(s): Kendal Saez MD [Primary Care Provider] - 1-2 days
[2025-02-26 15:24] VITALS: BP 138/82; PULSE 69; RESP 18; TEMP 97.9
== END 2025-02-26 17:20 | disposition home or self-care (01) | DRG 389 ==
LOC: EC 13:47 → 4SSUR 19:44 → OBSVTOIN 19:45 → 4SSUR 21:46
PROVIDERS: ADMIT Internal Medicine; ATTEND Internal Medicine
DX: K56.600 Partial intestinal obstruction, unspecified as to cause (principal); Q43.8 Other specified congenital malformations of intestine; E83.39 Other disorders of phosphorus metabolism; I11.9 Hypertensive heart disease without heart failure; J45.990 Exercise induced bronchospasm; K76.0 Fatty (change of) liver, not elsewhere classified; N40.0 Benign prostatic hyperplasia without lower urinary tract symptoms; D35.01 Benign neoplasm of right adrenal gland; D35.02 Benign neoplasm of left adrenal gland; E78.2 Mixed hyperlipidemia; E86.0 Dehydration; E87.6 Hypokalemia; K21.00 Gastro-esophageal reflux disease with esophagitis, without bleeding; G47.33 Obstructive sleep apnea (adult) (pediatric); J30.2 Other seasonal allergic rhinitis; N52.9 Male erectile dysfunction, unspecified; R43.2 Parageusia; Z86.0100 Personal history of colon polyps, unspecified; Z79.899 Other long term (current) drug therapy
CPT/HCPCS: 36415; 74018; 74019; 74177; 74250; 76705; 80048; 80053; 81003; 83605; 83690; 83735; 84132; 85025; 93005; 96360; 96361; 99285